=== PATIENT | male | born 1950 | race Caucasian/White ===

== ENCOUNTER 2019-07-07 12:48 | Outpatient (CLI) | payer OTHER, SELFPAY ==
--- NOTE | 2019-07-07 15:23 | DI.RAD_ITS ---
EXAM: XR ELBOW RT COMPLETE INDICATION: RT OLECRANON BURSITIS, M70.21. COMPARISON: No exams were available for comparison TECHNIQUE: 2D digital imaging was performed. FINDINGS: Three views were obtained. There is marked soft tissue swelling of the extensor region distal upper arm. There are multiple calcific or ossific bodies seen projected posterior to the distal humerus. Multiple calcific bodies also present adjacent to the olecranon. The findings as described are nonsp ecific but may represent dystrophic calcification versus tendon avulsion of the triceps. Please michel elate clinically and additional evaluation with MR may be considered for further evaluation. IMPRESSION:
== END 2019-07-07 13:08 ==
PROVIDERS: PCP Family Medicine; Visit Provider Family Medicine
DX: M70.21 Olecranon bursitis, right elbow (principal); M79.89 Other specified soft tissue disorders; M25.521 Pain in right elbow
CPT/HCPCS: 73080

== ENCOUNTER 2019-07-24 02:50 | Emergency (ER) | payer OTHER, SELFPAY ==
[2019-07-24] VITALS (27 sets, daily range): BP systolic 117–135; BP diastolic 67–96; PULSE 43–71; RESP 12–18; TEMP 36.8; O2SAT 94–98
--- NOTE | 2019-07-24 02:53 | W.ED.GENAD ---
Discharge Plan Disposition Patient Disposition: HOME Condition: Good Discharge Details Chief Complaint: GenMedical Clinical Impression: Left shoulder pain Primary Care Provider: Leesa Do V ED Provider: Stevan Avitia Home Meds and New Rx's Prescriptions: No Action simvastatin 10 mg Tablet 10 mg PO QPM RF: 0 Discharge Instructions Instructions: Chest Pain (ED), Shoulder Pain (ED) Additional Instructions: At this time your x-ray is normal, and your cardiac work-up is also normal. Your EKG shows no significant changes compared to prior EKGs. It is likely that your symptoms are secondary to a mild muscle strain, however it is important because of your risk factors that you follow-up closely with your primary care provider. Additionally we will schedule an outpatient stress test for you for further cardiac assessment. Please continue to take a daily aspirin. Consider taking Tylenol for your pain. If you notice any worsening of your symptoms, or any new symptoms such as vomiting, diarrhea, fever, chills, shortness of breath, chest pain, numbness, weakness, or fainting , please return immediately to the emergency department for reevaluation. Please follow up with your primary care provider as soon as possible for reassessment and reevaluation. As always, it was a pleasure participating in your medical care today. Your stress test has been scheduled for tomorrow, Wednesday. Please arrive at 1:45 PM. Referrals: Leesa Do MD [Primary Care Provider] - Medical Decision Making This is a very pleasant 69-year-old male with past medical history of high cholesterol, strong family history of atypical cardiac dysrhythmias, as well as family history of cardiac disease from his father. He presents today for evaluation of atypical left shoulder pain. Patient states that he woke at 1:30 AM, to urinate. While getting up to urinate he noticed some pain in his left shoulder and arm. He also had an atypical sensation in his chest. He came to the ER for further assessment. Vital signs normal, physical exam unremarkable. EKG shows nonspecific QRS widening, however previous EKG from 2005 demonstrates identical findings. Of note the patient has had notable episodes of exertion over the last few weeks including multiple long walks on the treadmill, exerting himself regularly at work with his job, and during these episodes he has had no pain, no discomfort, no shortness of breath, no decrease in energy. Signs and symptoms feel unlikely to be related to ACS especially with his notable lack of exertional symptoms. However because of his age, clinical risk factors, I do feel that cardiac evaluation, and serial troponins is certainly warranted. Signs and symptoms at this time are clinically inconsistent with PE or dissection. His symptoms may also be secondary to musculoskeletal etiology. We will give aspirin, acetaminophen, evaluate for ACS and reassess. 6:58 AM Serial troponins and EKGs have returned unremarkable. Patient's vital signs remained stable. Continued minimal achiness in the left shoulder. Notably improved from when he initially arrived. Signs and symptoms at this time appear clinically inconsistent with ACS, aortic dissection, or severe PE.. Suspect potential muscle strain. However because of the patient's family history, concerning risk factors we did discuss observation versus discharge with close follow-up and outpatient stress test. Family has agreed for outpatient management. We discussed the risks and benefits of this plan, and family understands and accepts this. At this time patient will be discharged home with close follow-up with PCP. We will set up outpatient stress testing, and we have discussed clear red flags for which to immediately return. I have extensively reviewed the treatment plan and discharge instructions with the patient and their family. I have addressed all patient concerns at this time. The patient and family was made aware of what symptoms to monitor for that would warrant a return to the emergency department. Discussed the plan with the patient and family, they demonstrate verbal understanding and agreement with our assessment and plan at this time. EKG 3: 05 Rate 51, MT 194, QTc 420, QRS 112, sinus bradycardia with nonspecific QRS widening. No significant ST elevations or depressions, no T wave inversions, no delta wave, no epsilon wave, no evidence of Brugada. No evidence of Wellens syndrome. Questionable small Q wave in lead III. Comparison of EKG from 03/16/2006 demonstrates no acute change. EKG 6: 23 Rate 49, MT 202, QTc 426, QRS 110, sinus bradycardia, nonspecific QRS widening, no significant ST elevation or depression, no evidence of STEMI. Unchanged from prior EKGs COMPARISON: No relevant prior studies available. FINDINGS: Lungs: Unremarkable. No consolidation. Pleural space: Unremarkable. No pleural effusion. No pneumothorax. Heart/Mediastinum: Unremarkable. No cardiomegaly. Diaphragm: Eventration of right hemidiaphragm. Bones/joints: Unremarkable. IMPRESSION: No acute findings. Thank you for allowing us to participate in the care of your patient. Dictated and Authenticated by: Jose Juan Camarena DO 07/24/2019 3:39 AM Eastern Time ([place] & [place]) HPI General Date/Time Provider Initiated Documentation: 07/24/19 02:52. HPI Narrative: This is a 69-year-old male with no significant past medical history who presents today for evaluation of left arm and shoulder pain. Patient states that when he awoke at 1:30 AM to urinate he noticed that he had some mild achiness in his left arm and left shoulder. In addition to this he noticed some weird feeling in his chest. He came to the ER for further evaluation. He denies any chest heaviness, tightness, shortness of breath, pleuritic chest pain, cough, tearing sensation in his chest, numbness, tingling, or weakness. 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 He denies any recent shortness of breath, fatigue, decreased stamina, or exertional chest pain. He also recently was on the treadmill and was walking greater than 1 mile with no difficulty, shortness of breath or chest or arm symptoms. He denies any previous cardiac disease. His 2 sisters did of sudden cardiac from an atypical heart condition, however the patient states that he has had a thorough work-up for this in the past and there was no concerning dysrhythmias during his prolonged cardiac monitoring then. His father did also of a heart attack. He denies any other complaints at this time. No other modifying factors. He did smoke over 35 years ago. He did take a baby aspirin earlier today. He does have high cholesterol. Denies PE risk factors such as recent long car rides, immobilization, recent surgery, prior history of DVT or PE, family history of PE or DVT, morbid obesity, exogenous estrogen and smoking, hemoptysis, history of cancer. Related Data Home Medications Medication Instructions Recorded Confirmed simvastatin 10 mg PO QPM 07/24/19 07/24/19 Allergies Allergy/AdvReac Type Severity Reaction Status Date / Time No Known Drug Allergies Allergy Unverified 11/21/18 11:07 Review of Systems Review of Systems ROS Unobtainable: All systems reviewed & are unremarkable except as noted in HPI and below [facility] Surgical History (Updated 11/22/18 @ 06:02 by Jacky Beltre MD) Status post right knee replacement (Chronic 2011) [place] [facility] [place] History Smoking/Tobacco Use Status: Former Tobacco Use Alcohol Intake: current Alcohol Intake frequency: a few times a month Substance use type: does not use Do you feel safe at home: Yes Do you feel safe in your relationship?: Yes Exam Narrative Exam Narrative: 1.Const: Well-nourished, Well-developed, appearing stated age 2.Eyes: PERRL, no conjunctival injection, and symmetrical lids. 3.ENT: Atraumatic external nose and ears. Moist MM. Neck: Symmetric, trachea midline, No thyromegaly. 4.CVS: +S1/S2, No murmurs or gallops. Peripheral pulses 2+ and equal in all extremities. Brisk capillary refill in all extremities. Radial pulses +2 bilaterally. Equal and symmetric. 5.RESP: Unlabored respiratory effort. Clear to auscultation bilaterally. No wheezes rales or rhonchi 6.GI: Soft, Nontender/Nondistended, No hepatosplenomegaly. No guarding or rebound. 7.MSK: Normocephalic/Atraumatic, Extremities w/o deformity or ttp No cyanosis or clubbing, Normal movement of all extremities. No pain with movement of the left upper arm. 8.Skin: Warm, Dry. No rashes or lesions. 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 Sensation grossly intact, no focal neurologic deficits. 10.Psych: (AAO) x3. Appropriate mood and affect
--- NOTE | 2019-07-24 03:01 | DI.RAD_ITS ---
EXAM: XR CHEST 2V PA LATERAL INDICATION: left shoulder pain. COMPARISON: No exams were available for comparison TECHNIQUE: 2D digital imaging was performed. FINDINGS: The lungs are free of infiltrate there is no pleural effusion or pneumothorax. The cardiovascular st ructures appear intact. Note is made of mild. No bony abnormality is seen. No acute apparent. Sign IMPRESSION:
--- NOTE | 2019-07-24 03:25 | NUR.NOTE ---
Pt arrives with c/o left arm pain since 129. Awoke to use BR, noted aching from shoulder to hand. Denies CP, SOB. Denies neck pain, no known injury. Family hx of CAD with sudden . SR on monitor. Labs drawn, to xray via strethcer.
[2019-07-24] MEDS: Acetaminophen 500 MG TAB 1000 MG PO (03:31)
[2019-07-24] MEDS: Aspirin 81 MG CHEW 324 MG CH (03:31)
--- NOTE | 2019-07-24 03:39 | DI.VRAD_ITS ---
PROCEDURE INFORMATION: Exam: XR Chest, 2 Views Exam date and time: 07/24/2019 3:26 AM Clinical history: 69 years old, male; Cough TECHNIQUE: Imaging protocol: XR of the chest Views: 2 views. COMPARISON: No relevant prior studies available. FINDINGS: Lungs: Unremarkable. No consolidation. Pleural space: Unremarkable. No pleural effusion. No pneumothorax. Heart/Mediastinum: Unremarkable. No cardiomegaly. Diaphragm: Eventration of right hemidiaphragm. Bones/joints: Unremarkable. IMPRESSION: No acute findings. Dictated and Authenticated by: Jose Juan Camarena MD. Ordering:LEYLA Calles MD
[2019-07-24 03:56] LABS: ALT 27 U/L (16-63); AST 25 U/L (15-37); Albumin 3.7 g/dL (3.4-5.0); Alkaline Phosphatase 50 U/L (46-116); Anion Gap 6.9 mmol/L (3-11); BUN 27 mg/dL (7-18); Bilirubin, Total 0.5 mg/dL (0.2-1.0); CO2 28.1 mmol/L (21.0-32.0); CREATININE 0.86 mg/dL (0.70-1.30); Calcium 8.7 mg/dL (8.5-10.1); Chloride 106 mmol/L (98-107); Glucose 100 mg/dL (70-100); Potassium 3.9 mmol/L (3.5-5.1); Sodium 141 mmol/L (136-145); Total Protein 6.9 g/dL (6.4-8.2)
[2019-07-24 04:04] LABS: Lipase 113 U/L (73-393); NT-proBNP 32 pg/mL
[2019-07-24 04:06] LABS: Troponin I < 0.05 ng/mL (0.00-0.06)
[2019-07-24 04:16] LABS: Abs Immature Grans 0.01 k/cumm (0.0-0.09); Absolute Basophil Count 0.03 k/cumm (0.0-0.2); Absolute Eosinophil Count 0.13 k/cumm (0.0-0.7); Absolute Lymphocyte Count 1.93 k/cumm (1.2-3.4); Absolute Neutrophil Count 2.09 k/cumm (1.2-6.7); Basophils % 0.6; Eosinophils % 2.8; HCT 41.4 % (40.0-50.0); HGB 14.1 g/dL (13.5-17.5); Immature Grans % 0.2; Lymphocytes % 41.2; Mean Corp. HGB Concentration 34.1 g/dL (32.0-36.0); Mean Corpuscular Hemoglobin 33.2 pg (27.0-33.0); Mean Corpuscular Volume 97.4 fL (80-95); Mean Platelet Volume 9.6 fL (8.0-11.0); Monocytes % 10.7; Neutrophils % 44.5; Platelet Count 190 x1000/uL (130-400); RBC 4.25 m/cumm (4.50-6.00); RBC Distribution Width 12.9 % (11.8-14.1); White Blood Cell Count 4.69 k/cumm (4.4-10.8)
[2019-07-24 04:35] LABS: PTT Activated 32.6 sec (21.0-31.4); Prothrombin Time 10.4 sec (9.3-11.0)
[2019-07-24 06:49] LABS: Troponin I < 0.05 ng/mL (0.00-0.06)
== END 2019-07-24 07:12 | disposition home or self-care (01) ==
PROVIDERS: Emergency Provider Student in an Organized Health Care Education/Training Program; PCP Family Medicine
DX: M25.512 Pain in left shoulder (principal); R07.89 Other chest pain; Z82.49 Family history of ischemic heart disease and other diseases of the circulatory system
CPT/HCPCS: 36415; 80053; 83690; 93005; 99284; 71046; 83880; 84484; 85025; 85610; 85730; 93010

== ENCOUNTER 2019-07-27 00:33 | Outpatient (CLI) | payer OTHER, SELFPAY ==
--- NOTE | 2019-07-27 14:00 | ETT_ITS ---
APPROVED REPORT Exam: Exercise Treadmill Patient Location: Out-Patient Stress Nurse: Chelle Harry RN Baseline Rhythm: Bradycardia BMI: 26.57 Indications: Left arm pain Medical History Medical History: Hyperlipidemia, Smoking(former) Cardiac Medications: Simvastatin/ Zocor, Aspirin Allergies: No known drug allergies Cardiac Risk Factors: Hyperlipidemia, FHX of CAD, Smoking(former) Pretest Chest Pain Characteristics: No chest pain Exercise History: Physically active Lung Sounds: Clear to auscultation Heart Sounds: Regular Stress Test Details Test: Exercise stress testing was performed using a Eliceo protocol. Rest Stress HR Resting HR: 52 bpm Max Heart Rate (APMHR): 152 bpm Resting HR Supine: 52 bpm Target HR (85% APMHR): 129 bpm Resting HR Standin bpm Max HR Achieved: 136 bpm % of APMHR: 89 Recovery HR: 76 bpm HR response to stress: Normal HR response to stress BP Resting BP: 164/64 mmHg Resting BP Supine: 164/64 mmHg Resting BP Standin/70 mmHg Max BP: 182/64 mmHg Recovery BP: 152/70 mmHg BP response to stress: Normal blood pressure response to stress. ECG Resting ECG: Sinus Bradycardia Ectopy: rare pvc Stress ECG: Sinus Tachycardia ST Change: Normal Arrhythmia: VPC's Recovery ECG: Sinus Rhythm Recovery Arrhythmia: VPC Clinical Time of Stop for Eliceo: 11:00 Reason for Termination: Fatigue, Target HR Achieved Exercise duration: 11 min00 sec Highest Stage Achieved: Stage 4: 4.2 mph at 16% grade. Exercise capacity: 13.44 METs Functional Capacity: Above average capacity Stress ECG Conclusion 1. The patient exercised for 11 minutes (13.44 METS) which demonstrates above average exercise tolera nce 2. This represents a maximal effort stress test 3. There is no ECG evidence of ischemia. 4. The Price Score (11) estimates an annual cardiovascular mortality of 0% and a five year survival of 96%. Using the Price Score there is a low probability of any angiographic coronary disease. Test Summary supine 52 164/64 standing 69 136/70 97 1 03:00 10 1.7 86 4.64 164/80 96 pvc noted 2 03:00 12 2.5 109 7.05 170/84 94 3 03:00 14 3.4 117 10.16 178/84 96 4 01:59 16 4.2 136 13.44 1 min recovery 107 182/64 3 min reocvery 72 164/70 6 min recovery 76 152/70
== END 2019-07-27 00:53 ==
PROVIDERS: PCP Family Medicine; Visit Provider Student in an Organized Health Care Education/Training Program
DX: E78.5 Hyperlipidemia, unspecified (principal); M79.602 Pain in left arm; Z87.891 Personal history of nicotine dependence; Z82.49 Family history of ischemic heart disease and other diseases of the circulatory system
CPT/HCPCS: 93017

== ENCOUNTER 2019-08-03 09:19 | Day surgery (SDC) | payer OTHER, SELFPAY ==
[2019-08-03 09:45] VITALS: BP 107/65; PULSE 50; RESP 16; TEMP 36.3; O2SAT 98
[2019-08-03] MEDS: Lactated Ringers 1,000 ML 100 ML IV (09:59)
[2019-08-03] MEDS: Bupivacaine LIPOSOME/PF 133 MG/10 ML VIAL IJ (11:11)
[2019-08-03] MEDS: Bupivacaine 0.5% Pres-Free 30 ML VIAL (11:11)
--- NOTE | 2019-08-03 11:23 | W.PM.DSUDISC ---
Discharge Plan Disposition Patient Disposition: HOME Condition: Stable Discharge Details Reason For Visit: (R) TRICEPS TENDON RUPTURE Attending Provider: Dharmesh Ramirez Primary Care Provider: Leesa Do V Home Meds and New Rx's Prescriptions: New naproxen 250 mg tablet 250 mg PO BID PRN (Reason: pain, moderate) Qty: 60 RF: 0 oxycodone 5 mg tablet 5 mg PO Q4H PRN (Reason: pain, severe) Qty: 22 RF: 0 Continued amoxicillin 500 mg Capsule 2,000 mg PO DIRECTED RF: 0 aspirin [Aspir-81] 81 mg Tablet,Delayed Release (Dr/Ec) 81 mg PO DAILY RF: 0 multivitamin Capsule 1 cap PO DAILY RF: 0 Lubricant Eye Drops 0.5 % Dropperette 1 drp OPHTHALMIC (EYE) BID RF: 0 omega 2-xvx-nlr-fish oil [Fish Oil] 1,000 mg (120 mg-180 mg) Capsule 1 cap PO DAILY RF: 0 simvastatin 10 mg Tablet 20 mg PO QPM RF: 0 Discharge Instructions Additional Instructions: Surgery: Right triceps tendon repair Activity: Nonweightbearing in splint at all times. Recommend elevation on 2 pillows for the next few days while resting to minimize swelling and discomfort. Prescriptions: Aspirin 81 mg take 1 daily to prevent a blood clot Naproxen 250 mg take 1-2 every 12 hours with a meal as needed for moderate pain Oxycodone 5 mg take 1-2 every 4-6 hours as needed for severe pain You may use [id number] Tylenol (acetaminophen) as needed for mild pain. These pain medications may be taken all at once or in different combinations as needed. Also, recommend Colace (docusate) as a stool softener as surgery and pain medicine cause constipation. Dressings: Leave splint and dressing in place until follow-up. Keep clean and dry at all times. Follow-up: 10-[address] Ramirez Please call the office during business hours with any questions or concerns. Let us know right away if you develop any redness, drainage, fevers, chest pain, or trouble breathing. Do not drink alcohol or drive for at least 24 hours after anesthesia. Stand Alone Forms: Anes.Nerve Block Instructions, DSU Post op Instructions, Maxine Iniguez (DSU) Referrals: Dharmesh Ramirez MD [ [facility] STAFF PHYSICIAN] - Discharge Orders Discharge Orders: Discharge Order (Routine); Ordered 08/03/19 Ordered By: Dharmesh Ramirez DS: Diagnosis Discharge Diagnosis (1) Rupture of right triceps tendon: Status: Acute
[2019-08-03] MEDS: ceFAZolin 2 GM/50 ML BAG IVPB (11:30)
[2019-08-03 14:11] VITALS: BP 96/58; PULSE 52; RESP 11; TEMP 36.3; O2SAT 99
[2019-08-03 14:15] VITALS: BP 85/55; PULSE 55; RESP 13; TEMP 36.3; O2SAT 99
[2019-08-03 14:20] VITALS: BP 93/68; PULSE 57; RESP 10; TEMP 36.3; O2SAT 99
[2019-08-03 14:35] VITALS: BP 101/58; PULSE 53; RESP 10; TEMP 36.4; O2SAT 97
--- NOTE | 2019-08-03 14:52 | W.PM.OP ---
Date of service: 08/03/19 Time of Service: 14:53 Operative Note Operative Note DATE OF PROCEDURE: 08/03/19 PRE-OP DIAGNOSIS: Right triceps tendon rupture POST-OP DIAGNOSIS: same PROCEDURE: Right triceps tendon repair SURGEON: Dharmesh Ramirez AUDIO NARRATOR: Ele Lancaster ANESTHESIA: GETA, regional and local ESTIMATED BLOOD LOSS: 15 COMPLICATIONS: None Patient was transported to: PACU Patient's condition: stable Implants: 1x 4.75 mm Arthrex swivel lock Indications: Please see complete medical record for details. Findings: 90% distal triceps avulsion from the olecranon with a few centimeters of retraction and scarring proximally. Intact 10% lateral head of the triceps. Procedure Description: The patient was taken to the operating room and transferred to the operating room table. General anesthesia was induced. The patient was positioned lateral with a beanbag for positioning. All bony prominences were well-padded. Preoperative antibiotics were administered. The right elbow and upper extremity was prepped and draped in the usual sterile fashion. The correct patient, procedure, and side of the procedure were all verified prior to incision. Using full-thickness flaps a posterior approach was taken to the olecranon and distal triceps tendon in a longitudinal fashion curving radially about the tip of the olecranon. Hemostasis was maintained. A large defect in the triceps tendon distally was encountered. Care was taken to free up the distal triceps tendon that was retracted and scarred while protecting neurovascular structures both medially and laterally. A Omar clamp was used to maintain traction on the triceps while digital blunt dissection was used to mobilize the tendon until it freely came down to its attachment on the olecranon and was not under undue tension when the elbow was positioned at 90 degrees of flexion. A rondure was used to debride the tendon edges of scar tissue and to debride the olecranon footprint of scar and soft tissue to create an appropriate bony bleeding bed to optimize healing. 2 bone tunnels were placed in a proximal to distal fashion using a 2 mm drill and taking care to start at the proximal most margin of the triceps footprint and exit the proximal ulna cortex medially and laterally a few centimeters distally. Next, the triceps tendon was secured using Arthrex suture tape in a locking Krak?w fashion using 2 sutures that were run from distal to proximal and back distal. Each suture pair exited the tendon footprint proximal margin. 2 fiber link sutures were then passed between each of the suture tape pairs keeping the loop proximal. Each set of 3 sutures both medially and laterally were brought through their respective bone tunnels using a OneMedNet suture retriever. One pair containing a suture tape from the medial and lateral repair stitch was then fed into the fiber link loop and brought through the tendon and back out the bone tunnel. This was repeated for the second side. This created a modified speed bridge reduction and compression repair. All sutures were provisionally tightened the elbow was taken to 90 degrees of flexion and there was found to be great apposition of the triceps tendon over its distal footprint without any gapping. The drill than the tap were used to place a 4.75 mm swivel lock proximally and centrally to the prior bone tunnels aiming distally and confirming that there was no anterior or joint cortical perforation using the OneMedNet suture passer to confirm a far cortex. Each pair of suture tapes was brought through the anchor eyelet and again individually tensioned medially and laterally. The suture anchor was secured. The suture anchor was brought flush to the cortex for maximal fixation and no soft tissue irritation. The elbow was again brought through a range of motion and the repair was found to be anatomic and secure. The free suture ends were cut. A 3-0 FiberWire was then used to repair this 90% of the triceps repair to the intact radial 10% of the lateral head of the triceps tendon in a running stitch fashion. The wound was copiously irrigated with normal saline. Deep tissue was closed using 0 Vicryl in a buried interrupted fashion. Superficial layers were irrigated again with normal saline. 0.25% bupivacaine with epinephrine was infiltrated about the incision. 2-0 Monocryl was used to close subcutaneous tissue in a buried interrupted fashion. 4-0 Monocryl was used to close the skin in a buried subcuticular fashion. Xeroform was placed over the incision followed by dry 4 x 4 gauze and ABDs and sterile soft roll. The arm was immobilized in a posterior plaster splint in approximately 60 degrees of elbow flexion. The patient awoke from anesthesia without complication was taken to recovery room in stable condition.
[2019-08-03 15:26] VITALS: BP 111/71; PULSE 55; RESP 16; TEMP 36.2; O2SAT 97
== END 2019-08-03 16:25 | disposition home or self-care (01) ==
PROVIDERS: PCP Family Medicine; Visit Provider Student in an Organized Health Care Education/Training Program
PROC: (CPT 24342; principal; 2019-08-03 10:45)
DX: S46.311A Strain of muscle, fascia and tendon of triceps, right arm, initial encounter (principal); X50.0XXA Overexertion from strenuous movement or load, initial encounter; G89.18 Other acute postprocedural pain
CPT/HCPCS: 24342; C1713; 76942; J0690; J1100; J1885; J2250; J2405; L3650

== ENCOUNTER 2019-10-30 10:50 | Outpatient (CLI) | payer OTHER, SELFPAY ==
--- NOTE | 2019-10-30 08:42 | DI.RAD_ITS ---
EXAM: XR STANDING ALIGNMENT INDICATION: L KNEE PAIN. COMPARISON: No exams were available for comparison TECHNIQUE: 2D digital imaging was performed. FINDINGS: There is a total right knee prosthesis. There are severe degenerative changes of the left knee, grea test in the medial femorotibial joint. There are mild degenerative changes of both hips, right great er than left. There is a slight leg length discrepancy. Ankle joint spaces are well maintained. IMPRESSION: Degenerative changes of the left knee. Right knee prosthesis. Minimal leg length discrepancy.
== END 2019-10-30 11:10 ==
PROVIDERS: PCP Family Medicine; Visit Provider Physician Assistant
DX: M25.562 Pain in left knee (principal); Z96.651 Presence of right artificial knee joint; M17.12 Unilateral primary osteoarthritis, left knee; M16.0 Bilateral primary osteoarthritis of hip; M21.70 Unequal limb length (acquired), unspecified site
CPT/HCPCS: 77073

== ENCOUNTER 2019-12-05 08:54 | Outpatient (CLI) | payer OTHER, SELFPAY ==
[2019-12-05 10:25] LABS: HCT 45.3 % (40.0-50.0); HGB 15.1 g/dL (13.5-17.5); Mean Corp. HGB Concentration 33.3 g/dL (32.0-36.0); Mean Corpuscular Hemoglobin 32.5 pg (27.0-33.0); Mean Corpuscular Volume 97.4 fL (80-95); Mean Platelet Volume 9.6 fL (8.0-11.0); Platelet Count 209 x1000/uL (130-400); RBC 4.65 m/cumm (4.50-6.00); RBC Distribution Width 12.8 % (11.8-14.1); White Blood Cell Count 5.53 k/cumm (4.4-10.8)
[2019-12-05 10:54] LABS: BUN 24 mg/dL (7-18); CREATININE 0.93 mg/dL (0.70-1.30); Calcium 9.1 mg/dL (8.5-10.1); Chloride 105 mmol/L (98-107); Glucose 103 mg/dL (74-106); Potassium 4.6 mmol/L (3.5-5.1); Sodium 142 mmol/L (136-145)
== END 2019-12-05 09:14 ==
PROVIDERS: PCP Family Medicine; Visit Provider Student in an Organized Health Care Education/Training Program
DX: M25.562 Pain in left knee (principal); M17.12 Unilateral primary osteoarthritis, left knee; Z01.818 Encounter for other preprocedural examination; Z01.812 Encounter for preprocedural laboratory examination
CPT/HCPCS: 36415; 80048; 85027

== ENCOUNTER 2019-12-12 13:10 | Observation (INO) | payer OTHER, SELFPAY ==
[2019-12-05 09:09] VITALS: BP 130/72; PULSE 52; RESP 18; TEMP 36.8; O2SAT 98
[2019-12-12] VITALS (13 sets, daily range): BP systolic 97–144; BP diastolic 54–84; PULSE 48–65; RESP 12–18; TEMP 35.7–36.7; O2SAT 92–98
[2019-12-12] MEDS: Lactated Ringers 1,000 ML 80 ML IV ×2 (10:45→16:46)
[2019-12-12] MEDS: Celecoxib 200 MG CAP 400 MG PO (10:58)
[2019-12-12] MEDS: Acetaminophen 500 MG TAB 1000 MG PO ×2 (10:58→19:24)
[2019-12-12] MEDS: Gabapentin 300 MG CAP PO ×2 (10:58→21:50)
[2019-12-12] MEDS: Bupivacaine 0.25% Pres-Free 30 ML VIAL ×2 (11:45→14:18)
[2019-12-12] MEDS: ceFAZolin 2 GM/50 ML BAG IVPB (13:10)
[2019-12-12] MEDS: Ketorolac 30 MG/ML VIAL (14:18)
[2019-12-12] MEDS: Normal Saline 20 ML VIAL (14:18)
--- NOTE | 2019-12-12 16:59 | IN_ITS ---
Date of service: 12/12/19 Time of Service: 16:59 PT Notes Visit Reasons: LEFT KNEE DJD Physical Therapy Inpatient Initial Evaluation Date: 12/12/2019 Referring Doctor: Jacky Beltre MD PT Orders: PT CONSULT: Status post Ortho surgery Precautions: Fall. Standard. WBAT on left LE. Hard of hearing. Patient Profile/Admitting Diagnosis: Patient is a 69-year-old male with primary unilateral osteoarthritis of left knee and status post left knee total arthroplasty on postoperative day 0. Patient is status post right TKA in 2010 with right triceps repair in July 2019. PMHX: Medical History (Updated 12/05/19 @ 08:07 by Ele Lancaster) Atopic dermatitis (Acute) Basal cell carcinoma (Acute) face GERD (gastroesophageal reflux disease) (Chronic) Heart murmur, systolic (Acute) History of concussion (Acute) History of syncope (Acute) Hyperlipemia (Acute) Surgical History (Updated 10/03/19 @ 13:27 by Ele Lancaster) History of appendectomy (Chronic) History of colonoscopy (Chronic) Rupture of right triceps tendon (Acute ~06/14/19) S/P triceps repair DOS: 08/03/19 Status post right knee replacement (Chronic 2010) [place] [facility] [place]/Home Situation: [place] lives with Dot in a private home with 4 steps to enter without rails that leads to a landing, another step up leads onto the main entrance of the house. Patient previously worked at [employer] and has lived an active lifestyle. says that patient will be staying on the main floor of the house to recover. Equipment Owned/DME: Front wheel walker. Subjective: Patient is agreeable to a PT consult. Patient states that he feels good and is rearing to go for walk. With weight bearing and ambulation patient did say that his leg feels like jelly and that there is still numb from the surgery. He denies headache, chest pain, and dizziness during all positional changes and throughout PT session. He is hoping that his Mazariegos catheter can be taken out as soon as permissible. Objective: General Observation: IV in right UE. Mazariegos catheter in place. TEDS on right leg. Mental Status: Alert and oriented x4 Pain: 0/10 ROM: Right Upper Extremity: Shoulder Flexion WFL. Shoulder abduction WFL. Elbow flexion WFL. Wrist flexion WFL. Opening and closing of hand WFL. Left Upper Extremity: Shoulder Flexion WFL. Shoulder abduction WFL. Elbow flexion WFL. Wrist flexion WFL. Opening and closing of hand WFL. Right Lower Extremity: Hip flexion WFL. Hip abduction WFL. Knee flexion WFL. Ankle dorsiflexion WFL. Ankle plantarflexion WFL. Left Lower Extremity: Hip flexion WFL. Hip abduction WFL. Knee flexion -5 to 120 degrees. Knee extension -5 degrees. Ankle dorsiflexion WFL. Ankle plantarflexion WFL. Strength: Right Upper Extremity: Shoulder flexors 5/5. Shoulder abductors 5/5. Elbow flexors 5/5. Elbow extensors 5/5. [employer] strong. Left Upper Extremity: Shoulder flexors 5/5. Shoulder abductors 5/5. Elbow flexors 5/5. Elbow extensors 5/5. [employer]ch[employer]ising Associate strong. Right Lower Extremity: Hip flexors 5/5. Hip abductors 5/5. Knee flexors 5/5. Knee extensors 5/5. Ankle dorsiflexors 5/5. Ankle plantarflexors 5/5. Left Lower Extremity:Hip flexors 4/5. Hip abductors 5/5. Knee flexors 3-/5. Knee extensors 3-/5. Ankle dorsiflexors 5/5. Ankle plantarflexors 5/5. Bed Mobility/Transfers: Rolling SBA Supine to sit SBA with HOB flat Sit to supine SBA with HOB flat Sit to stand CGA using both hands for support Stand to sit CGA using both hands for support Bed to chair minimal assist due to unsteadiness Chair to bed minimal assist due to unsteadiness Gait: Patient tolerated level surface ambulation of about 30 feet using the front wheeled walker with minimal assist of PT and wheelchair follow of nurse Renetta with reciprocal step to gait pattern. Left quads activation minimal during each left stance phase leading to instability and lack of full control from patient. Further ambulation activity was deferred by PT due to safety reasons despite patient wanting to go on some more. Patient was so sure that activity level will be significantly increased during the next session first thing tomorrow morning. Balance: Static Sitting: Normal Dynamic Sitting: Normal Static Standing: Fair Dynamic Standing: Fair Special Tests: Mobility Limitations Standardized Measure [facility] 6 clicks Basic Mobility Inpatient Short Form: Raw Score: 19 CMS Score: 42% deficit Informed Consent/Education: Patient instructed in purpose of PT consult and plan of care. Assessment: Decreased motor control of left quadriceps, difficulty with walking, impaired mobility ADL performance, and increased recent risk for falls resulting from recent surgery. Patient is a 69-year-old male with primary unilateral osteoarthritis of left knee and status post left knee total arthroplasty on postoperative day 0. Patient is status post right TKA in 2010 with right triceps repair in July 2019. Patient presents with clinical signs and symptoms consistent with current/admitting diagnoses that have resulted to mobility limitations, gait instability, generalized weakness, and impairment of motor control as demonstrated by the following impairment level findings: 1. Decreased strength to left knee major muscle groups 2. Impaired standing balance 3. Impaired activity tolerance 4. Limitation of joint range of motion in left knee Impairments are contributing to the following functional limitations: 1. Dependent bed mobility skills 2. Increased dependence with transfers 3. Inability to safely ambulate without assistive device and physical assistance 4. Increase completion time for mobility ADL performance 5. Increased fall risk 6. Inability to negotiate steps alone safely Patient is assessed as a 76488 moderate complexity based on the following: History: 69-year-old male with past medical history, impairment level findings, functional limitations, and [facility] deficits score of 42% Examination: Demonstrable impairment in strength, balance, and range of motion with underlying impairments and functional limitations as documented above Presentation:Evolving Decision Makin moderate complexity Goals: Goals X1 week 1. Supine-Sit independent 2. Sit-Supine independent 3. Sit-Stand independent 4. Stand-Sit independent 5. Bed-Chair independent 6. Chair-Bed independent 7. Independent gait on level surface with use of least restrictive device for at least 300 feet without report of pain nor dyspnea 8. Independent stair negotiation while holding onto bilateral rails for at least 5 steps without report of pain nor dyspnea 9. Independent with home exercise program 10. Good static and dynamic standing balance/tolerance Plan of Care/Treatment Plan: 1-2x/day, 7 days/week x 1 week. Plan of care has been reviewed with the ASSOCIATE SPA DIRECTOR providing the service under Physical Therapy direction. Initiate Physical Therapy intervention for strengthening, bed mobility, transfers, gait, stairs, balance training, use of assistive device. DISCHARGE RECOMMENDATIONS: May benefit from skilled physical therapy services according to orthopedic surgeon's timeline recommendations. Patient will be educated and trained on home exercise program per TKA exercise protocol in pre paration for outpatient physical therapy services. TREATMENT CODE/TIME: 31958 x 32 minutes beginning at 16:59 PM. Thank you very much for this referral. Apryl Gonzalez PT, DPT, CLT [facility] [place], [place]
[2019-12-12] MEDS: ceFAZolin 1 GM/50 ML BAG IVPB (17:39)
[2019-12-12] MEDS: Simvastatin 10 MG TAB PO (19:25)
[2019-12-12] MEDS: Aspirin E.C. 81 MG TABEC PO (19:25)
[2019-12-12] MEDS: Celecoxib 200 MG CAP PO (19:25)
[2019-12-12] MEDS: Refresh PLUS Eye Drops 0.4ml OP (19:26)
--- NOTE | 2019-12-12 21:25 | W.PM.OP ---
Date of service: 12/12/19 Time of Service: 15:26 Operative Note Operative Note DATE OF PROCEDURE: 12/12/19 PRE-OP DIAGNOSIS: Left Knee Osteoarthritis POST-OP DIAGNOSIS: same PROCEDURE: Left Cementless Total Knee Replacement SURGEON: Jacky Beltre MANUFACTURING ACCOUNTANT: Dayanna Mendez ANESTHESIA: regional and spinal ESTIMATED BLOOD LOSS: 400 PATHOLOGY: none sent TOURNIQUET TIME: 0 COMPLICATIONS: None Patient was transported to: PACU Patient's condition: stable Implants: 1. Depuy Attune Cruciate Retaining Pressfit Femoral Component, Size 5 2. Depuy Attune Rotating Platform Tibial Component, Size 5 3. Depuy Attune 5x6mm CR/RP Poly 4. Depuy Attune Patellar Component, Size 38mm Indications: I have seen Aaron in clinic for symptoms of left knee arthritis, confirmed with radiographic findings. Aaron has exhausted nonoperative methods and was having significant limitations in daily function and desired better function and less pain. I discussed the technical details of a knee replacement. I explained the risks of the procedure to include, but not limited to, bleeding, infection, pain, stiffness, fracture, damage to nerves and vessels, damage to muscles and tendons, loosening, need for repeat procedure, blood clot and cardiopulmonary demise. Despite these risks, he elected to proceed. Findings: There was significant signs of arthritis throughout the knee, most notably over the medial aspect. Procedure Description: Aaron was greeted in the preoperative holding area where the correct side was identified and marked. The consent was reviewed with the patient and signed. The history and physical was updated. All questions were answered. Preoperative mediacations were administered: Acetaminophen 1000mg, Celebrex 400mg, and Gabapentin 300mg. An adductor canal block was then administered by the anesthesia team in the PACU. Aaron was taken back to the operating room. A spinal anesthestic was then administered. The patient was placed into the supine position on the operating room table. A nonsterile tourniquet was placed high onto the leg but only used for cementing. Posts were placed for positioning during the procedure. All bony prominences were well padded. Prophylactic antibiotics in the form of Cefazolin were administered. 1g of Tranxemic Acid was given intravenously within 30 minutes of incision. The left leg was then prepped with Chloraprep and draped in a standard fashion with impervious stockinette and extremity drape. A second prep with Chloraprep was performed prior to placing Ioband. A timeout to confirm correct identity, side and site, procedure, allergies, anesthesia, and medical concerns was performed. With the knee in some flexion, a midline incision was made overlying the knee. Full thickness skin flaps were raised once the extensor mechanism was encountered. These were raised medially and laterally. Any bleeding was controlled with electrocautery. Once the extensor mechanism was fully exposed, a medial parapatellar arthrotomy was performed in a flexed position. All bleeding from the arthrotomy and the geniculate arteries was coagulated. A medial subperiosteal peel was performed with electrocautery to the midcoronal plane. The fat pad was removed while keeping the patellar tendon protected. The anterior distal femur synovium was removed for later visualization. The ACL and PCL were resected and the anterior horn of the lateral meniscus was transected. The knee was then flexed with the patella everted. Large osteophytes from the tibia were removed. Large osteophytes from the femur were removed. Using a step drill, and based on preoperative templating, the femoral canal was entered. This was done with a step drill without any difficulty. The intramedullary distal femoral cut guide was inserted, set to a 6 degree valgus cut and 9mm cut thickness. The distal femoral cut guide was then held in position and pinned. With the soft tissues protected, the distal cut was performed. This was passed over a few times to ensure a planar cut. I then turned attention to the tibia. The extramedullary guide was placed onto the leg. The distal aspect was slid medial to adjust for position of center of ankle and stay in line with shaft of the tibia. Approximately 3-5 degrees of posterior slope was kept in the proximal cutting guide. The center of the guide was aligned with the PCL. The stylus was used to assess cut thickness. The medial side, most involved side, was set for a 2mm cut, corresponding to 8mm laterally. This was then held in position and pinned into place with 2 additional pins and a cross pin for stability. The medial and lateral collateral ligaments were protected and the cut was performed. With this completed, it was assessed and noted to be of appropriate dimensions. The guide was removed. A spacer block was inserted and the knee was brought into extension. The 6mm spacer block provided full extension, without hyperextension and with stability of both the medial and lateral collateral ligaments was assessed. The pins from the femur and the tibia were then removed. The distal femur was then sized. The anterior stylus was placed onto the lateral ridge of the anterior femur. This indicated a size 5 femur. The external rotation of the guide was adjusted to 3 degrees to match the epicondylar axis, perpendicular to Anitra?s line. The 4-in-1 cutting guide was the placed. The posterior medial femur cut was evaluated and appeared of good thickness. The spacer block was inserted underneath the cutting guide and stability was confirmed in 90 degrees of flexion. An damari wing was used to confirm appropriate position of the anterior cut to avoid notching. This cutting guide was ensured to be flush on the cut surface and then pinned into place with headed pins. While protecting the soft tissues, quad tendon, and collateral ligaments, the anterior and posterior cuts were performed with a saw. The central two pins were removed and the posterior and anterior chamfers were cut next. The notch-cutting guide was placed. This was pinned to lateralize the femoral component as much as possible while keeping it flush on the cut surface. This was then pinned into position. A reciprocating saw was used to make the notch cut. A rasp smoothed the cut surfaces. A trial cruciate substituting femoral component was then inserted, impacted down to the cut surfaces, and the lug holes were drilled. A provisional trial tibial component was placed and the knee was brought through range of motion. There was noted to be excellent extension and flexion. There was no significant instability. The patella was tracking without thumbs. The tibial cut surface was fully exposed. The medial and lateral menisci were removed. The tibia was then sized as a 5. The tibia had been previously marked during trialing to correspond to the center of the tibial component to help with rotation. The trial was aligned to this tanmay, approximately rotated to the medial 1/3rd of the tibial tubercle. The trial was pinned into place. The tibia was prepared with a reamer and a keel punch. The knee was then brought into extension and the patella was measured as 29mm. Using the patellar clamp and cut guide, this was resected to a flat surface with at least 13mm of thickness remaining. The size 38mm patella fit the best. This was oriented and then clamped into position. The lugs were drilled. The trial components were removed. The final components, except for the polyethylene were opened on the back table. The periosteal and capsular tissues, especially posteriorly, around the knee were then systematically injected with a periarticular cocktail consisting of 50cc 0.25% Marcaine, 30mg Ketorolac, 20cc of Exparal and 50cc of injectable saline. The knee was thoroughly irrigated with a pulse lavage and dried. On the back table, with the implants opened, the cement was mixed for the patella. 1 batch of high viscosity cement were prepared with vacuum assistance. Cement was manually impacted into the cut surface of the patella and the patellar button was clamped into position and held. While the cement was hardening, the knee was irrigated with Irrisept chlorhexadine solution. It was allowed to sit in the knee for 3 minutes. The press-fit tibial component was then inserted. With light mallet blows, the tibia was impacted until I had complete contact against the tibial cut surface. The femoral component was likewise impacted with light mallet blows until it sat flush against the distal surface of the cut femur. After the cement had finally cured, approximately 15min, the clamp was removed from the patella and the knee was taken through range of motion. A size 6mm polyethylene component provided the best range of motion and stability with less than 2mm gapping with medial and lateral stress and full extension without significant hyperextension. The patella was tracking with a no-thumbs technique. The trial poly was removed and once again the knee was checked for any loose, excess, or errant cement. The poly component was then inserted and impacted into position after cleaning and drying the tibial tray. The capsule was then reapproximated with a No. 1 Vicryl at multiple locations. The capsule was finally closed with a No. 2 Stratafix, barbed suture. The second dosing of 1g TXA was started. Deep tissues were then reapproximated with 0 Vicryl and 2-0 Vicryl. The skin was closed with a running 3-0 Monocryl in a subcuticular fashion. This was reinforced with skin glue. A Mepilex silver dressing was applied along with a [id number] ITZEL wrap. A CryoCuff was applied. Aaron was transferred to the hospital bed without difficulty an suffering no apparent complication. Aaron has a good prognosis. Physical therapy will start today and without restrictions, weight-bearing as tolerated. Aspirin 81mg BID will be used for DVT prophylaxis.
[2019-12-13] MEDS: ceFAZolin 1 GM/50 ML BAG IVPB ×2 (01:18→09:23)
[2019-12-13 04:20] VITALS: BP 118/66; PULSE 56; RESP 19; TEMP 36.8; O2SAT 96
[2019-12-13] MEDS: Lactated Ringers 1,000 ML 80 ML IV (06:00)
--- NOTE | 2019-12-13 07:16 | W.PM.DS.N ---
Date of service: 12/13/19 Time of Service: 07:16 DS: Diagnosis Discharge Diagnosis (1) Primary osteoarthritis of left knee: Status: Chronic Discharge Plan Disposition Patient Disposition: HOME Condition: Good Discharge Details Reason For Visit: LEFT KNEE DJD Admit Date/Time: 12/12/19 13:10 Admit Provider: Jacky Beltre Attending Provider: Jacky Beltre Primary Care Provider: Leesa Do V Hospital Course Hospital Course: Patient was admitted to the medical/surgical floor following the procedure. It was tolerated well without any notable medical, surgical, or anesthetic complications. Mobilization began postoperatively. The del rosario catheter was removed and voiding spontaneously. Vitals were stable. Physical therapy worked with the patient and was cleared for discharge home. No acute medical issues. Home Meds and New Rx's Prescriptions: New celecoxib 200 mg capsule 200 mg PO BID PRN (Reason: pain) Qty: 60 RF: 1 aspirin 81 mg tablet,delayed release (DR/EC) 81 mg PO BID Qty: 60 RF: 0 acetaminophen 500 mg tablet 1,000 mg PO Q8H PRN (Reason: pain) Qty: 90 RF: 3 pantoprazole 40 mg tablet,delayed release (DR/EC) 40 mg PO DAILY Qty: 30 RF: 0 gabapentin 300 mg capsule 300 mg PO QHS Qty: 7 RF: 0 oxycodone 5 mg tablet 5 mg PO Q4H Qty: 12 RF: 0 Continued multivitamin Capsule 1 cap PO DAILY RF: 0 Lubricant Eye Drops 0.5 % Dropperette 1 drp OPHTHALMIC (EYE) BID RF: 0 omega 2-qub-awm-fish oil [Fish Oil] 1,000 mg (120 mg-180 mg) Capsule 1 cap PO DAILY RF: 0 simvastatin 10 mg Tablet 10 mg PO QPM RF: 0 Tumeric 500 mg 500 mg PO DAILY RF: 0 Discontinued amoxicillin 500 mg Capsule 2,000 mg PO DIRECTED RF: 0 aspirin [Aspir-81] 81 mg Tablet,Delayed Release (Dr/Ec) 81 mg PO DAILY RF: 0 naproxen 250 mg tablet 250 mg PO BID PRN (Reason: pain, moderate) Qty: 60 RF: 0 Discharge Instructions Additional Instructions: Dr. Beltre?s Total Knee Discharge Instructions Activity: The most important activity is to walk. You should try to take short walks a few times a day. It is important that when resting you work on keeping the knee straight. Avoid putting a pillow behind the knee as this will encourage flexion. Work on range of motion exercises as provided by Physical Therapy. - Start outpatient physical therapy within 2 weeks. - You should wear the MIGEL hose on both legs for 2 weeks. Dressing: Keep the surgical dressing in place for at least one week. After the first week it may be removed and replace with light gauze and tape or nothing. It may get wet after 3 days but avoid soaking the dressing. If it gets wet, just lightly pat dry. Medications: - You should take Tylenol and anti-inflammatory Celebrex as your primary pain control medications - You have been prescribed a stronger pain medication Oxycodone for breakthrough pain, take as needed as prescribed. - You have also been prescribed a stomach acid reduction agent Pantoprozole to help reduce stomach acid and reflux. - You have been prescribed Gabapentin to take at night for nerve pain and sleep - You will be taking Aspirin 81mg twice a day for DVT prevention unless instructed otherwise. - If you have constipation you should take Colace or Miralax (both [id number]). It takes most people 3-4 days to have a bowel movement. Follow-up: 2 weeks Referrals: Jacky Beltre MD [ [facility] STAFF PHYSICIAN] - Activity:: Activity as Tolerated Equipment/Supplies:: Walker Diet:: As Tolerated Discharge Orders Discharge Orders: Discharge Order (Routine); Ordered 12/13/19 Ordered By: Jacky Beltre DS: Summary Status at Discharge Functional status at discharge: uses cane/walker Overall status at discharge: patient is progressing back to baseline Mental Status: mental status grossly normal Speech and Movement: speech and movement normal Mood: congruent mood Affect: normal affect Exam Psych Mental Status: mental status grossly normal Speech and Movement: speech and movement normal Mood: congruent mood Affect: normal affect DS: Data Vitals/I&O Vitals and I&O: Vital Signs Temperature 36.8 C 12/13/19 04:20 Temperature Source Tympanic 12/13/19 04:20 Pulse 56 L 12/13/19 04:20 Pulse Rhythm Regular 12/13/19 03:55 Respiratory Rate 19 12/13/19 04:20 Respiratory Effort Non-Labored 12/13/19 03:55 Respiratory Depth Normal 12/13/19 03:55 Respiratory Pattern Normal 12/13/19 03:55 Blood Pressure 118/66 12/13/19 04:20 Pulse Oximetry 96 12/13/19 04:20 Respiratory End-tidal CO2 34 12/12/19 16:00 Oxygen Delivery Method Room Air 12/13/19 04:20 Oxygen Flow Rate 0 12/13/19 04:20 Pain Level 0 12/12/19 23:48 Intake & Output 12/12/19 12/12/19 12/13/19 11:59 23:59 11:59 Intake Total 1222.666 / 5333.365 0238 / 1000 Output Total 1150 / 1150 1000 / 1000 Balance 72.666 / 72.666 0 / 0 Weight 84.822 kg Intake: IV 1102.666 / 3903.730 2050 / 1000 Oral 120 / 120 Output: Urine 750 / 750 1000 / 1000 Estimated Blood Loss 400 / 400 Other: Urine Color Yellow Pale Yellow Urine Appearance Clear Clear Emesis Description [facility] Medical History Atopic dermatitis (Acute) Basal cell carcinoma (Acute) face GERD (gastroesophageal reflux disease) (Chronic) Heart murmur, systolic (Acute) History of concussion (Acute) Pt. stated he fell and hit his head on ice History of syncope (Acute) Hyperlipemia (Acute) Surgical History History of appendectomy (Chronic) History of colonoscopy (Chronic) Rupture of right triceps tendon (Acute ~06/14/19) S/P triceps repair DOS: 08/03/19 Status post right knee replacement (Chronic 2010) 2010 in [facility] [place] Social History Smoking/Tobacco Use Status: Former Tobacco Use Quit Date: 10/04/89 Pack-years: 30 Alcohol Intake: current Alcohol Intake frequency: a few times a week Drug use: Never Substance use type: does not use current occupation: retired - Current gender identity: male Do you feel safe at home: Yes Do you feel safe in your relationship?: Yes
[2019-12-13 07:40] VITALS: BP 115/72; PULSE 56; RESP 18; TEMP 36.7; O2SAT 95
[2019-12-13] MEDS: Omega-3 Fatty Acids 1000 MG CAP PO (09:21)
[2019-12-13] MEDS: Acetaminophen 500 MG TAB 1000 MG PO (09:21)
[2019-12-13] MEDS: Celecoxib 200 MG CAP PO (09:22)
[2019-12-13] MEDS: Aspirin E.C. 81 MG TABEC PO (09:22)
[2019-12-13] MEDS: Pantoprazole 40 MG TABCR PO (09:22)
[2019-12-13] MEDS: Refresh PLUS Eye Drops 0.4ml OP (09:22)
[2019-12-13] MEDS: Normal Saline Flush 10 ML SYR IV (09:23)
[2019-12-13] MEDS: oxyCODONE 5 MG TAB PO (09:29)
--- NOTE | 2019-12-13 10:30 | PTTR_ITS ---
Date of service: 12/13/19 Time of Service: 10:30 PT Notes Visit Reasons: LEFT KNEE DJD 12/13/2019 SUBJECTIVE: Pt stating he is doing well today with minimal discomfort. His is present during our treatment and together they are confident with managing stairs and getting around their home. OBJECTIVE: Seated in recliner. Agreeable to PT treatment. TRANSFERS Sit to stand: SBA Stand to sit: SBA GAIT Device: FWW Weight bearing: AT L Assist: SBA Distance: 100'x2 STAIRS: 3-4, 2-6, No rail at home and pt utilizes SPC and REGULATORY SUBMISSIONS SPECIALIST with step to pattern. THEREX: Review HEP, pillow placements and frequent bouts of walking. ASSESSMENT: Pt has good understanding of his HEP. No LOB during gait and he manages stairs well. He will have good support at home from his . PLAN: Pt to be discharged home. See discharge summary for details. Treatment time: 25 minutes [id number] Suellen Gonzales, MANAGER [employer]
[2019-12-13 11:43] VITALS: BP 152/76; PULSE 79; RESP 17; TEMP 36.8; O2SAT 97
--- NOTE | 2019-12-13 12:06 | PDOC.CMIN ---
- If Service Date Differs Date of service: 12/13/19 Time of Service: 12:06 Care Management Initial Assess REASON FOR HOSPITALIZATION:: Left total knee PAST MEDICAL HISTORY/PAST SURGICAL HISTORY:: Atopic dermatitis, basal cell carcinoma, GERD, heart murmur, concussion, syncope, hyperlipdemia. Surgical Hx: appendectomy, colonoscopy, tricept repair, total knee 2011 PREVIOUS FUNCTIONAL STATUS/SOCIAL/FAMILY SUPPORTS:: Aaron is independent at baseline he has family supports and does not feel he needs any addtional supports. CURRENT FUNCTIONAL STATUS:: Aaron is sitting up in the chair in his room, his family is present. He does wants to sign up for patient portal which CM will assist with. Aaron has has a knee replacement in the past and is clear about instruction. ADVANCE DIRECTIVES:: On file Has patient been provided with information about the portal?: Yes Did the patient sign up for the portal?: Yes CODE STATUS:: Full Code INSURANCE COVERAGE / FINANCIAL ISSUES:: Carlos Solano CURRENT HOME/COMMUNITY SERVICES/EQUIPMENT:: [facility] PRIMARY CARE PHYSICIAN:: POTENTIAL DISCHARGE NEEDS:: Follow up with provider as directed. PATIENT/FAMILY EDUCATION NEEDS:: Discharge educations, limitations and follow up plan of care. ANTICIPATED BARRIERS TO DISCHARGE:: None TRANSPORTATION:: Via private car with spouse PLAN:: Aaron is being discharged home today, he feels ready to discharge home. He states he has all his equipment and needs no additional services at this time. Patient signed up for portal at his request.
--- NOTE | 2019-12-14 09:08 | PT.INDS ---
Date of service: 12/14/19 PT Notes Visit Reasons: LEFT KNEE DJD Inpatient Physical Therapy Discharge Summary Dates: 12/14/2019 Dates of Service: 12/12/2019 and 12/13/2019 This is a clinical summary of care provided on the duration of dates listed above. No charge was made in the completion of this documentation. Referring Doctor: Jacky Beltre MD PT Orders: PT CONSULT: Status post Ortho surgery Precautions: Fall. Standard. WBAT on left LE. Hard of hearing. Patient Profile/Admitting Diagnosis: Patient is a 69-year-old male with primary unilateral osteoarthritis of left knee and status post left knee total arthroplasty on postoperative day 1 on day of discharge. Patient is status post right TKA in 2010 with right triceps repair in July 2019. PMHX: Medical History (Updated 12/05/19 @ 08:07 by Ele Lancaster) Atopic dermatitis (Acute) Basal cell carcinoma (Acute) face GERD (gastroesophageal reflux disease) (Chronic) Heart murmur, systolic (Acute) History of concussion (Acute) History of syncope (Acute) Hyperlipemia (Acute) Surgical History (Updated 10/03/19 @ 13:27 by Ele Lancaster) History of appendectomy (Chronic) History of colonoscopy (Chronic) Rupture of right triceps tendon (Acute ~06/14/19) S/P triceps repair DOS: 08/03/19 Status post right knee replacement (Chronic 2010) 2010 in [facility] Social History/Home Situation: [place] lives with Dot in a private home with 4 steps to enter without rails that leads to a landing, another step up leads onto the main entrance of the house. Patient previously worked at [employer] and has lived an active lifestyle. says that patient will be staying on the main floor of the house to recover. Equipment Owned/DME: Front wheel walker. Subjective: NT. See most recent NUT DEHYDRATOR OPERATOR notes. Objective: General Observation: NT. See most recent NUT DEHYDRATOR OPERATOR notes. Mental Status: NT. See most recent NUT DEHYDRATOR OPERATOR notes. Pain: NT. See most recent NUT DEHYDRATOR OPERATOR notes. ROM: Right Upper Extremity: Shoulder Flexion WFL. Shoulder abduction WFL. Elbow flexion WFL. Wrist flexion WFL. Opening and closing of hand WFL. Left Upper Extremity: Shoulder Flexion WFL. Shoulder abduction WFL. Elbow flexion WFL. Wrist flexion WFL. Opening and closing of hand WFL. Right Lower Extremity: Hip flexion WFL. Hip abduction WFL. Knee flexion WFL. Ankle dorsiflexion WFL. Ankle plantarflexion WFL. Left Lower Extremity: Hip flexion WFL. Hip abduction WFL. Knee flexion -5 to 120 degrees. Knee extension -5 degrees. Ankle dorsiflexion WFL. Ankle plantarflexion WFL. Strength: Right Upper Extremity: Shoulder flexors 5/5. Shoulder abductors 5/5. Elbow flexors 5/5. Elbow extensors 5/5. Clinical Evaluator strong. Left Upper Extremity: Shoulder flexors 5/5. Shoulder abductors 5/5. Elbow flexors 5/5. Elbow extensors 5/5. Clinical Evaluator strong. Right Lower Extremity: Hip flexors 5/5. Hip abductors 5/5. Knee flexors 5/5. Knee extensors 5/5. Ankle dorsiflexors 5/5. Ankle plantarflexors 5/5. Left Lower Extremity:Hip flexors 4/5. Hip abductors 5/5. Knee flexors 3-/5. Knee extensors 3-/5. Ankle dorsiflexors 5/5. Ankle plantarflexors 5/5. Bed Mobility/Transfers: Rolling SBA Supine to sit SBA with HOB flat Sit to supine SBA with HOB flat Sit to stand SBA Stand to sit SBA Bed to chair SBA Chair to bed SBA Gait: 100 feet x 2 with SBA using front wheeled walker with WBAT on left. Up-and-down three 4 inch steps and two 6 inch steps with single-point cane with only hand-held assist. Balance: Static Sitting: Normal Dynamic Sitting: Normal Static Standing: Fair Dynamic Standing: Fair Assessment: Decreased motor control of left quadriceps, difficulty with walking, impaired mobility ADL performance, and increased recent risk for falls resulting from recent surgery. Patient is a 69-year-old male with primary unilateral osteoarthritis of left knee and status post left knee total arthroplasty on postoperative day 1 on day of discharge. Patient is status post right TKA in 2010 with right triceps repair in July 2019. Patient presented with clinical signs and symptoms consistent with current/admitting diagnoses that have resulted to mobility limitations, gait instability, generalized weakness, and impairment of motor control as demonstrated by the following impairment level findings: 1. Decreased strength to left knee major muscle groups 2. Impaired standing balance 3. Impaired activity tolerance 4. Limitation of joint range of motion in left knee Impairments contributed to the following functional limitations: 1. Dependent bed mobility skills 2. Increased dependence with transfers 3. Inability to safely ambulate without assistive device and physical assistance 4. Increase completion time for mobility ADL performance 5. Increased fall risk 6. Inability to negotiate steps alone safely Goals: Goals X1 week 1. Supine-Sit independent NOT MET 2. Sit-Supine independent NOT MET 3. Sit-Stand independent NOT MET 4. Stand-Sit independent NOT MET 5. Bed-Chair independent NOT MET 6. Chair-Bed independent NOT MET 7. Independent gait on level surface with use of least restrictive device for at least 300 feet without report of pain nor dyspnea NOT MET 8. Independent stair negotiation while holding onto bilateral rails for at least 5 steps without report of pain nor dyspnea NOT MET 9. Independent with home exercise program NOT MET 10. Good static and dynamic standing balance/tolerance NOT MET DISCHARGE RECOMMENDATIONS: May benefit from skilled physical therapy services according to orthopedic surgeon's timeline recommendations. Patient will be educated and trained on home exercise program per TKA exercise protocol in preparation for outpatient physical therapy services. TREATMENT CODE/TIME: NV Thank you very much for this referral. Apryl Gonzalez PT, DPT, CLT [facility] [place], [place]
== END 2019-12-13 13:13 | disposition home or self-care (01) ==
LOC: PDS 16:20 → MS 16:23 → DSU 16:38 → MS 16:42 → PDS 16:42
PROVIDERS: Admitting Provider Student in an Organized Health Care Education/Training Program; PCP Family Medicine; Visit Provider Student in an Organized Health Care Education/Training Program
PROC: 0SRD0JA Replacement of Left Knee Joint with Synthetic Substitute, Uncemented, Open Approach (ICD-10-PCS; CPT 27447; principal; 2019-12-12 15:30)
DX: M17.12 Unilateral primary osteoarthritis, left knee (principal); M25.562 Pain in left knee; Z96.652 Presence of left artificial knee joint; K21.9 Gastro-esophageal reflux disease without esophagitis; E78.5 Hyperlipidemia, unspecified
CPT/HCPCS: 27447; C1776; 76942; 97110; 97162; 97530; NC; G0378; J0690; J1885; J2001; J2405

== ENCOUNTER 2019-12-28 11:35 | Outpatient (CLI) | payer OTHER, SELFPAY ==
--- NOTE | 2019-12-28 11:00 | DI.RAD_ITS ---
EXAM: XR STANDING ALIGNMENT AND XR KNEE LT 1 VIEW CLINICAL HISTORY: 1ST POST OP. TECHNIQUE: 2D digital imaging was performed. COMPARISON: XR STANDING ALIGNMENT from 10/30/2019 FINDINGS: The patient has bilateral total knee replacements. Since the prior examination, the patient has unde rgone a left total knee replacement. The orthopedic hardware appears in good position. The bones ar e intact. There is mild soft tissue swelling about the left knee. The right lower extremity measure s 89.9 cm. The left lower extremity measures 89.8 cm. IMPRESSION: Bilateral total knee replacements. DATA REPOSITORY: RADIATION DOSE DELIVERED:
== END 2019-12-28 11:55 ==
PROVIDERS: PCP Family Medicine; Visit Provider Student in an Organized Health Care Education/Training Program
DX: Z96.653 Presence of artificial knee joint, bilateral (principal); Z47.1 Aftercare following joint replacement surgery; M79.89 Other specified soft tissue disorders
CPT/HCPCS: 73560; 77073

== ENCOUNTER 2020-03-08 06:06 | Day surgery (SDC) | payer OTHER, SELFPAY ==
[2020-03-08 06:19] VITALS: BP 125/80; PULSE 63; RESP 16; TEMP 36.7; O2SAT 96
[2020-03-08] MEDS: Lactated Ringers 1,000 ML 80 ML IV (06:42)
--- NOTE | 2020-03-08 07:18 | W.PM.DSUDISC ---
Discharge Plan Disposition Patient Disposition: HOME Condition: Good Discharge Details Reason For Visit: Colonoscopy Attending Provider: Danni Oh Primary Care Provider: Leesa Do V Home Meds and New Rx's Prescriptions: Continued aspirin [Adult Low Dose Aspirin] 81 mg tablet,delayed release (DR/EC) 81 mg PO DAILY RF: 0 zyflammed whole body capsule 1 cap PO DAILY RF: 0 multivitamin Capsule 1 cap PO DAILY RF: 0 Lubricant Eye Drops 0.5 % Dropperette 1 drp OPHTHALMIC (EYE) BID RF: 0 omega 1-qmm-xdn-fish oil [Fish Oil] 1,000 mg (120 mg-180 mg) Capsule 1 cap PO DAILY RF: 0 simvastatin 10 mg Tablet 10 mg PO QPM RF: 0 acetaminophen 500 mg tablet 1,000 mg PO Q8H PRN (Reason: pain) Qty: 90 RF: 3 Discontinued polyethylene glycol 3350 17 gram/dose powder 238 g PO ONCE Qty: 238 RF: 0 bisacodyl 5 mg tablet,delayed release (DR/EC) 5 mg PO ONCE Qty: 4 RF: 0 Discharge Instructions Additional Instructions: Findings: Your colonoscopy showed diverticulosis. No polyps were found. Follow up: Plan for a colonoscopy in 5 years due to family history of colon cancer. Please call if you develop: fevers >101.5 Nausea or Vomiting Abdominal pain that is not transient DAY SURGERY UNIT POST COLONOSCOPY INSTRUCTIONS 1. Because there will be medication in your system for the next 24 hours, you may feel a little sleepy. Your coordination will be affected. Therefore: a. Do not drive or operate dangerous equipment for 24 hours. b. Do not drink alcohol beverages for 24 hours (not even beer). c. Plan to go home and rest for the day. 2. Generally there are no restrictions on your activity after a day or so has gone by, but you may feel a bit fatigued for a few days. 3 After you arrive home you may have a light meal and return to a normal diet as you can tolerate it without feeling sick to your stomach. 4. After surgery, you may feel pain or discomfort. This should be only transient, but if it persists please contact your doctor. 5. If there are any questions regarding the findings of your procedure, please feel free to contact your doctor. 6. If you are unable to contact your doctor with a problem, contact the hospital at [phone]. 7. Continue all your regular medications unless directed otherwise. I understand the above instructions and have no questions. Signature of Patient or Responsible Adult Escort Date/Time Name of Responsible Adult Escort Signature of Nurse Date/Time Activity:: Activity as Tolerated Diet:: As Tolerated Discharge Orders Discharge Orders: Discharge Order (Routine); Ordered 03/08/20 Ordered By: Danni Oh DS: Diagnosis Discharge Diagnosis (1) Family history of colon cancer in father: Status: Acute (2) Diverticulosis: Status: Acute
--- NOTE | 2020-03-08 07:19 | W.PM.OP ---
Date of service: 03/08/20 Time of Service: 08:08 Operative Note Operative Note DATE OF PROCEDURE: 03/08/20 PRE-OP DIAGNOSIS: History of colon polyps POST-OP DIAGNOSIS: other (Diverticulosis) PROCEDURE: Colonoscopy SURGEON: Danni Oh ANESTHESIA: MAC Patient was transported to: same day Patient's condition: stable Indications: This patient had a transverse colon polyp removed in 2014. His father was treated for colon cancer. Procedure Description: The patient was placed in the left Salguero position. Propofol was titrated to sedation. Digital rectal examination revealed no abnormalities. The scope was advanced to the cecum without difficulty. The ileocecal valve and appendiceal orifice were clearly identified. The distal ileum was intubated and appeared normal. The prep was good. The scope was slowly withdrawn over the course of greater than 6 minutes with no abnormalities seen in the ascending, transverse, descending, sigmoid colon or rectum including on retroflexed view with the exception of significant diverticulosis in the sigmoid region and scattered throughout the colon. The patient tolerated the procedure well and was stable to recovery. Plan for routine screening colonoscopy in 5 years or sooner if symptoms indicate.
[2020-03-08 08:31] VITALS: BP 115/67; PULSE 63; RESP 18; TEMP 36.4; O2SAT 97
== END 2020-03-08 08:55 | disposition home or self-care (01) ==
PROVIDERS: PCP Family Medicine; Visit Provider Surgery
PROC: 0DJD8ZZ Inspection of Lower Intestinal Tract, Via Natural or Artificial Opening Endoscopic (ICD-10-PCS; CPT 45378; principal; 2020-03-08 07:30)
DX: Z12.11 Encounter for screening for malignant neoplasm of colon (principal); Z80.0 Family history of malignant neoplasm of digestive organs; Z86.010 Personal history of colon polyps; K57.30 Diverticulosis of large intestine without perforation or abscess without bleeding
CPT/HCPCS: 45378

== ENCOUNTER 2020-03-30 14:10 | Emergency (ER) | payer OTHER, SELFPAY ==
[2020-03-30 14:13] VITALS: BP 158/86; PULSE 70; RESP 18; TEMP 36.6; O2SAT 96
--- NOTE | 2020-03-30 14:15 | DI.CT_ITS ---
EXAM: CT HEAD WO CLINICAL HISTORY: R/O fracture, Foreign body, injury, lac r frontal. TECHNIQUE: Imaging Protocol: Axial computed tomography images with coronal and sagittal reformatted images were created and reviewed COMPARISON: No exams were available for comparison FINDINGS: Ventricles and Extra axial spaces: Normal in size and morphology for the patient's age. Hemorrhage: None. Cerebral parenchyma: Normal. Midline shift: None. Brainstem/Cerebellum: Normal. Calvarium: Normal. Visualized Paranasal sinuses/Mastoids: Small mucous retention cyst or polyp in the right maxillary si nus. Soft Tissues: Small soft tissue laceration overlying the right frontal bone. No radiopaque foreign b lazaro. IMPRESSION: 1. No acute intracranial process. 2. Small soft tissue laceration overlying the right frontal bone. No radiopaque foreign body. RADIATION DOSE DELIVERED: 808.01mGy.cm Total DLP DATA REPOSITORY: All CT scans at this facility are submitted to the National Radiology Data Registry (NRDR) Dose Index Registry (DIR) with the [employer] (ACR). RADIATION OPTIMIZATION: All CT scans at this facility use at least one of these dose optimization te chniques: automated exposure control; mA and/or kV adjustment per patient size (includes targeted exa ms where dose is matched to clinical indication); or iterative reconstruction.
--- NOTE | 2020-03-30 14:31 | ED.GENADUL_ITS ---
Discharge Plan Disposition Patient Disposition: HOME Condition: Stable Discharge Details Chief Complaint: Laceration Clinical Impression: Concussion, Laceration of scalp Primary Care Provider: Leesa Do V ED Provider: Marli Oconnor Home Meds and New Rx's Prescriptions: Continued aspirin [Adult Low Dose Aspirin] 81 mg tablet,delayed release (DR/EC) 81 mg PO DAILY RF: 0 zyflammed whole body capsule 1 cap PO DAILY RF: 0 multivitamin Capsule 1 cap PO DAILY RF: 0 Lubricant Eye Drops 0.5 % Dropperette 1 drp OPHTHALMIC (EYE) BID RF: 0 omega 3-nla-cmv-fish oil [Fish Oil] 1,000 mg (120 mg-180 mg) Capsule 1 cap PO DAILY RF: 0 simvastatin 10 mg Tablet 10 mg PO QPM RF: 0 acetaminophen 500 mg tablet 1,000 mg PO Q8H PRN (Reason: pain) Qty: 90 RF: 3 Discharge Instructions Instructions: Laceration (ED), Concussion (ED) Additional Instructions: Have sutures removed in 5 to 7 days. He can come back here or follow-up with your primary care provider. If any signs of infection like increased redness, swelling, drainage or any concerns please return sooner to the emergency room. You have any worsening headache, confusion, vomiting please return immediately to the emergency room. Keep covered for 12 to 24 hours then allow laceration to air dry at least 1 to 2 hours a day. Keep covered and clean if outside or working. Referrals: Leesa Do MD [Primary Care Provider] - Medical Decision Making 70-year-old male presents the ED complaining of head injury. Patient reports he was cutting down a metal swing set cut a metal pole and the other end came up and hit him in the head. Denies loss of consciousness, no neck or back pain. Takes daily aspirin. He does have a linear laceration noted to his right frontal scalp measuring approximately 3 and half centimeters. Small venous bleed noted upon initial exam. EOMs are intact, does have a mild right frontal maxillary sinus tenderness with palpation, no crepitus or step-off. No other complaints at this time. 1439: Laceration infiltrated with 1% lidocaine with epi patient tolerated well, anesthesia achieved. Bleeding controlled. Head CT without contrast ordered to rule out foreign body versus intracranial hemorrhage versus fracture. COMPARISON: No relevant prior studies available. FINDINGS: No evidence of hemorrhage. No mass effect. No acute intracranial abnormality. No radiopaque foreign body. Slight irregularity to the nasal bones suggesting nondisplaced fracture. Minimal retention cyst in the right maxillary sinus. IMPRESSION: No evidence of acute intracranial process. Thank you for allowing us to participate in the care of your patient. Dictated and Authenticated by: Noé Kerr MD Laceration repaired as noted in procedure note above. Patient alert and oriented x4 upon discharge ambulatory in department without difficulty. Given strict return instructions and home care. Instructed to follow-up with PCP or return to the ED to have sutures removed in 5 to 7 days. 3 simple interrupted four-point 0 nylon sutures placed. This text was generated using [employer] system, please disregard any oddities of phrase or misspellings. HPI General Mode of arrival: ambulatory . Date/Time Provider Initiated Documentation: 03/30/20 14:14 . Limitations to Documentation: no limitations and physical limitation (Hard of hearing) . Information obtained by: patient . HPI Narrative: 70-year-old male presents the ED complaining of head injury. Patient reports he was cutting down a metal swing set cut a metal pole and the other end came up and hit him in the head. Denies loss of consciousness, no neck or back pain. Takes daily aspirin. He does have a linear laceration noted to his right frontal scalp measuring approximately 3 and half centimeters. Small venous bleed noted upon initial exam. EOMs are intact, does have a mild right frontal maxillary sinus tenderness with palpation, no crepitus or step-off. No other complaints at this time. Related Data Home Medications Medication Instructions Recorded Confirmed simvastatin 10 mg PO QPM 07/24/19 03/30/20 Lubricant Eye Drops 1 drp OPHTHALMIC (EYE) BID 08/01/19 03/30/20 multivitamin 1 cap PO DAILY 08/01/19 03/30/20 omega 0-csh-dow-fish oil [Fish Oil] 1 cap PO DAILY 08/01/19 03/30/20 acetaminophen 1,000 mg PO Q8H PRN #90 tab 12/13/19 03/30/20 aspirin 81 mg tablet,delayed 81 mg PO DAILY 02/29/20 03/30/20 release zyflammed whole body 1 cap PO DAILY 02/29/20 03/08/20 Previous Rx's Medication Instructions Recorded acetaminophen 1,000 mg PO Q8H PRN #90 tab 12/13/19 Allergies Allergy/AdvReac Type Severity Reaction Status Date / Time No Known Drug Allergies Allergy Verified 03/30/20 14:16 General Stated Complaint: Laceration MIKIE: 4 Review of Systems All systems reviewed & are unremarkable except as noted in HPI and below Constitutional Constitutional: Reports as per HPI ENT Ears, Nose, Mouth, and Throat: Reports sinus pain Comments: no complaints of ear pain. No ear trauma. Cardiovascular Cardiovascular: Denies chest pain and Denies dyspnea Respiratory Respiratory: Denies cough and Denies dyspnea Integumentary/Breasts Skin/Breast: Reports as per HPI Comments: Laceration right frontal scalp FOR[facility]LY [facility], [facility] Medical History Adenomatous polyp of transverse colon (Acute ~04/18/15) Atopic dermatitis (Acute) Basal cell carcinoma (Acute) face Family history of colon cancer in father (Acute) At age 65 GERD (gastroesophageal reflux disease) (Chronic) Heart murmur, systolic (Acute) History of concussion (Acute) Pt. stated he fell and hit his head on ice History of syncope (Acute) Hyperlipemia (Acute) Surgical History History of appendectomy (Chronic) History of colonoscopy (Chronic) Rupture of right triceps tendon (Acute ~06/14/19) S/P triceps repair DOS: 08/03/19 Status post right knee replacement (Chronic 2010) 2010 in [facility] Status post total left knee replacement (Acute 12/12/19) Social History Smoking/Tobacco Use Status: Former Tobacco Use Quit Date: 10/04/90 Pack-years: 30 Alcohol Intake: current Alcohol Intake frequency: a few times a week Alcohol type: beer and hard liquor Drug use: Never Substance use type: does not use current occupation: retired - Current gender identity: male Do you feel safe at home: Yes Do you feel safe in your relationship?: Yes Exam Narrative Exam Narrative: Constitutional: Alert and oriented x3. Appears stated age. Normal body habitus. Head: Normocephalic, no palpable skull fracture, no hematoma palpated. Eyes: Pupils PERRLA, Red reflex noted, EOM's intact. Eyelids symmetrical without lesions, discharge, or swelling. ENT: Bilateral TM's WNL, no hemotympanum, external ear normal to inspection, no mastoid TTP, swelling, or erythema, Nasal turbinates WNL, no septal hematoma, no nasal discharge. Normal dentition, does have prosthetic dentures uppers, posterior pharynx WNL, no exudate. Chest: RRR, Normal S1, S2, distal pulses intact. Resp: Lungs clear to auscultation bilaterally, no wheezes, rales, or rhonchi. Musculoskeletal: Normal gait, 5/5 strength to all four extremities. Skin: Approximately 3.5 cm linear laceration noted to his right frontal scalp small venous ooze noted. Capillary refill less than 2 sec. Neurologic: Cranial nerves II-XII intact. Alert and oriented x 3. DTR's intact. Hematologic/Lymphatic: No ecchymosis, no lymphadenopathy. Course Vital Signs Vital signs: Vital Signs Temperature 36.6 C 03/30/20 14:13 Pulse 70 03/30/20 14:13 Respiratory Rate 18 03/30/20 14:13 Blood Pressure 158/86 H 03/30/20 14:13 Pulse Oximetry 96 03/30/20 14:13 Temperature 36.6 C 03/30/20 14:13 Temperature Source Tympanic 03/30/20 14:13 Pulse 70 03/30/20 14:13 Respiratory Rate 18 03/30/20 14:13 Respiratory Effort Non-Labored 03/30/20 14:16 Blood Pressure 158/86 H 03/30/20 14:13 Pulse Oximetry 96 03/30/20 14:13 Oxygen Delivery Method Room Air 03/30/20 14:13 Oxygen Flow Rate 0 03/30/20 14:13 Pain Level 4 03/30/20 14:13 Procedures Laceration Laceration 1: Site: scalp Side (If applicable): right Size (cm): 3.5 Description: linear Depth: simple, single layer Local Anesthetic: Lidocaine 1% and with Epi Amount of anesthesia used (mL): 2 Pre-repair: wound explored, irrigated extensively and deep structures intact Skin layer closed with: nylon Size (cm): 4-0 Number of sutures: 3 Technique: simple, interrupted
[2020-03-30] MEDS: Tetanus & Diphtheria Tox,ADULT 0.5 ML VIAL IM (14:40)
--- NOTE | 2020-03-30 15:04 | DI.VRAD_ITS ---
PROCEDURE INFORMATION: Exam: CT Head Without Contrast Exam date and time: 03/30/2020 2:22 PM Age: 70 years old Clinical indication: Other: R/O fracture, foreign body, injury, lac R frontal TECHNIQUE: Imaging protocol: Computed tomography of the head without contrast. Radiation optimization: All CT scans at this facility use at least one of these dose optimization techniques: automated exposure control; mA and/or kV adjustment per patient size (includes targeted exams where dose is matched to clinical indication); or iterative reconstruction. COMPARISON: No relevant prior studies available. FINDINGS: No evidence of hemorrhage. No mass effect. No acute intracranial abnormality. No radiopaque foreign body. Slight irregularity to the nasal bones suggesting nondisplaced fracture. Minimal retention cyst in the right maxillary sinus. IMPRESSION: No evidence of acute intracranial process. Dictated and Authenticated by: Noé Kerr MD. Ordering:BENEDICT Calles MD
== END 2020-03-30 18:50 | disposition home or self-care (01) ==
PROVIDERS: Emergency Provider Registered Nurse Emergency; PCP Family Medicine
DX: S01.01XA Laceration without foreign body of scalp, initial encounter (principal); W22.8XXA Striking against or struck by other objects, initial encounter; Z79.82 Long term (current) use of aspirin
CPT/HCPCS: 12002; 90471; 99284; 70450; 99282

== ENCOUNTER 2020-12-20 11:34 | Outpatient (CLI) | payer OTHER, SELFPAY ==
--- NOTE | 2020-12-20 10:15 | DI.RAD_ITS ---
EXAM: XR KNEE LT 2V AP,LAT INDICATION: annual f/u. COMPARISON: CR XR KNEE LT 1V from 12/28/2019 TECHNIQUE: 2D digital imaging was performed. FINDINGS: There has been no change in the total knee prosthesis or appearance of the surrounding bone. A larg e enthesophyte is again noted at the superior pole of the patella. Small joint effusion is visible. DATA REPOSITORY: RADIATION DOSE DELIVERED:
== END 2020-12-20 11:35 | disposition home or self-care (01) ==
LOC: DIORS 11:34
PROVIDERS: PCP Nurse Practitioner Family; Visit Provider Student in an Organized Health Care Education/Training Program
DX: Z96.652 Presence of left artificial knee joint (principal)
CPT/HCPCS: 73560

== ENCOUNTER 2021-10-15 15:56 | Outpatient (CLI) | payer OTHER, SELFPAY ==
--- NOTE | 2021-10-15 14:30 | DI.RAD_ITS ---
Exam(s) XR SHOULDER RT COMPLETE 2+V EXAM: XR SHOULDER RT COMPLETE 2+V CLINICAL HISTORY: shoulder pain. TECHNIQUE: 2D digital imaging was performed. COMPARISON: CR RIGHT SHOULDER COMPLETE from 08/03/2014 FINDINGS: Two views of the right shoulder compared to 2014. There is no evidence of fracture or dislocation no abnormal soft tissue calcifications in the subacro mial space nor adjacent to the greater tuberosity. Main finding here is significant degenerative change in the glenohumeral joint with joint space narro wing in the inferior aspect of the joint and opposing osteophytes at the inferior articular surface o f the humeral head and inferior aspect of the osseous glenoid. There are no degenerative subarticula r cysts evident. There are moderate degenerative changes in the ipsilateral AC joint. No evidence of os acromiale. N o ominous osseous lesions. IMPRESSION: Degenerative changes as described above. This appears to have progressed within the glenohumeral mike nt when compared to 2013 DATA REPOSITORY: RADIATION DOSE DELIVERED:
== END 2021-10-15 15:57 | disposition home or self-care (01) ==
LOC: DIORS 15:56
PROVIDERS: PCP Nurse Practitioner Family; Referring Provider Nurse Practitioner Family; Visit Provider Student in an Organized Health Care Education/Training Program
DX: M25.511 Pain in right shoulder (principal); M19.011 Primary osteoarthritis, right shoulder; M19.012 Primary osteoarthritis, left shoulder
CPT/HCPCS: 73030

== ENCOUNTER 2021-10-23 01:25 | Outpatient (CLI) | payer OTHER, SELFPAY ==
--- NOTE | 2021-10-23 07:15 | DI.MRI_ITS ---
Exam(s) MR UPPER JOINT RT WO EXAM: MR UPPER JOINT RT WO CLINICAL HISTORY: Traumatic weakness and pain,s46.011a TECHNIQUE: Multiplanar multisequence MRI of the shoulder was performed. COMPARISON: CR XR SHOULDER RT COMPLETE 2+V from 10/15/2021 FINDINGS: MARROW:No evidence of fracture, Hill-Sachs deformity nor bony Bankart lesion. No ominous osseous les ions. ROTATOR CUFF MECHANISM: AC JOINT/ACROMIUM: There are advanced degenerative changes in the right AC joint. Downgoing osteophy bhargavi, more prominent on the clavicular side of the joint and resulting in some impingement at this lev el.. Also hypertrophied undersurface tissue. Undersurface of the acromion is flat. No impingement hook. There is no evidence of os acromiale. Supraspinatus: There is an area of significant intrasubstance signal abnormality in the supraspinatus foot pad insertion site just above the greater tuberosity which measures 7 millimeters AP by 3 alesia meters wide. This is not completely traversed the tendon and is consistent with an articular side rosa face the partial tear. There is no associated fluid in the subacromial-subdeltoid bursa. No retractio n of the musculotendinous junction. No atrophy. Infraspinatus: Intact. No evidence of tear nor muscle atrophy. Teres Minor: Intact. No evidence of tear nor muscle atrophy. Subscapularis/anterior cuff: There is an area of signal abnormality in the tendon just anterior to th e lesser tuberosity insertion site consistent with partial substance tearing. No retraction. No atrop hy. BICEPS TENDON: Not displaced from the intertubercular groove. Exhibits some substance irregularity wi thin the intertubercular groove but without high-grade tear. LABRUM: No significant signal abnormality in the superior labrum posterior to the biceps tendon inser tion. However, there is tearing of the anterior labrum evident as well as partial tearing of the infe rior labrum. Posterior labrum appears intact. Is no evidence of paralabral cyst. GLENOHUMERAL JOINT: Small-moderate size joint effusion is evident. No degenerative subarticular cysts . Osteophyte on the inferior articular surface of the humeral head noted. No obvious loose intra-casey cular bodies. Inferior glenohumeral ligament appears intact IMPRESSION: 1. There is a partial articular side surface tear at the insertional aspect of the supraspinatus tend on just above the greater tuberosity. Significant impingement evident at the AC joint level. There is no atrophy of supraspinatus. Infraspinatus is intact. 2. There is also partial thickness tearing at the insertional aspect of the subscapularis-anterior cu ff immediately anterior to the lesser tuberosity. There is no abnormal intraosseous signal seen in th e coracoid process. No muscle atrophy. 3. There is tearing of the anterior labrum and part of the inferior labrum evident. There is some par tial tearing of the biceps tendon within the inter tubercular groove but without high-grade tear of t he biceps tendon nor evidence of SLAP-type superior labral tear. Also no evidence of paralabral cyst. 4. Small-moderate size joint effusion which extends down the long head biceps tendon sheath. 5. Moderate degenerative changes in the glenohumeral joint including small osteophyte on the inferior articular surface of the humeral head. There are no degenerative subarticular cysts. No evidence of significant bone edema and no significant lesions. DATA REPOSITORY:
== END 2021-10-23 01:45 ==
PROVIDERS: PCP Nurse Practitioner Family; Visit Provider Student in an Organized Health Care Education/Training Program
DX: M25.511 Pain in right shoulder; S46.011A Strain of muscle(s) and tendon(s) of the rotator cuff of right shoulder, initial encounter; X58.XXXA Exposure to other specified factors, initial encounter; M25.411 Effusion, right shoulder; M19.011 Primary osteoarthritis, right shoulder
CPT/HCPCS: 73221

== ENCOUNTER 2022-04-22 08:16 | Outpatient (CLI) | payer OTHER, SELFPAY ==
--- NOTE | 2022-04-22 08:00 | DI.RAD_ITS ---
Exam(s) XR FOREARM LT EXAM: XR FOREARM LT CLINICAL HISTORY: forearm pain. TECHNIQUE: 2D digital imaging was performed. Two views. COMPARISON: No exams were available for comparison FINDINGS: BONES: No acute fracture is present. No bony destructive lesion is seen. There has been prior resect ion of the trapezium. There is spurring from both epicondyles. There is prominent spurring as well as calcification in distal triceps tendon. No elbow joint effusion. SOFT TISSUE: Normal. IMPRESSION: Degenerative and postsurgical changes. DATA REPOSITORY: RADIATION DOSE DELIVERED:
== END 2022-04-22 08:17 | disposition home or self-care (01) ==
LOC: DIORS 08:16
PROVIDERS: PCP Nurse Practitioner Family; Referring Provider Nurse Practitioner Family; Visit Provider Student in an Organized Health Care Education/Training Program
DX: M19.042 Primary osteoarthritis, left hand (principal)
CPT/HCPCS: 73090

== ENCOUNTER 2022-11-09 16:22 | Outpatient (REF) | payer OTHER, SELFPAY ==
[2022-11-09 15:57] LABS: ALT 33 U/L (16-63); AST 23 U/L (15-37); Albumin 4.1 g/dL (3.4-5.0); Alkaline Phosphatase 53 U/L (46-116); Anion Gap 7.2 mmol/L (3-11); BUN 19 mg/dL (7-18); Bilirubin, Total 0.7 mg/dL (0.2-1.0); CO2 30.8 mmol/L (21.0-32.0); Calcium 9.3 mg/dL (8.5-10.1); Calculated LDL 71 mg/dL (<100); Chloride 104 mmol/L (98-107); Cholesterol 151 mg/dL (<200); Estimated GFR 80.47 (mL/min/1.73m2); Glucose 100 mg/dL (74-106); HDL Cholesterol 57 mg/dL (40-60); Potassium 3.8 mmol/L (3.5-5.1); Sodium 142 mmol/L (136-145); Total Protein 6.9 g/dL (6.4-8.2); Triglyceride 119 mg/dL (<150)
[2022-11-09 16:13] LABS: Hemoglobin A1C 5.6 % (<5.7)
[2022-11-09 23:12] LABS: PSA, Screening 2.4 ng/mL (<=6.5)
== END 2022-11-09 16:23 | disposition home or self-care (01) ==
LOC: NCHCN 16:22
PROVIDERS: PCP Nurse Practitioner Family; Visit Provider Nurse Practitioner Family
DX: R73.03 Prediabetes (principal); E78.5 Hyperlipidemia, unspecified; Z12.5 Encounter for screening for malignant neoplasm of prostate; Z00.00 Encounter for general adult medical examination without abnormal findings
CPT/HCPCS: 80053; 80061; 84153; 83036

== ENCOUNTER 2024-02-07 12:32 | Outpatient (REF) | payer OTHER, SELFPAY ==
[2024-02-07 14:30] LABS: HCT 46.6 % (40.0-50.0); HGB 15.2 g/dL (13.5-17.5); MCH 32.6 pg (27.0-33.0); MCHC 32.6 % (32.0-36.0); MCV 100 fL (80-95); MPV 10.3 fL (8.0-11.0); Platelet Count 172 10^3/uL (130-400); RBC 4.66 10^6/uL (4.36-5.78); RDW 12.6 % (11.8-14.1); RDW-SD 46.4 fL; WBC 5.34 10^3/uL (4.4-10.8)
[2024-02-07 15:02] LABS: ALT 27 U/L (16-63); AST 22 U/L (15-37); Albumin 4.3 g/dL (3.4-5.0); Alkaline Phosphatase 55 U/L (46-116); Anion Gap 7.6 mmol/L (3-11); BUN 20 mg/dL (7-18); Bilirubin, Total 0.7 mg/dL (0.2-1.0); CO2 31.4 mmol/L (21.0-32.0); Calcium 9.4 mg/dL (8.5-10.1); Calculated LDL 102 mg/dL (<100); Chloride 106 mmol/L (98-107); Cholesterol 179 mg/dL (<200); Estimated GFR 79.97 (mL/min/1.73m2); Glucose 103 mg/dL (74-106); HDL Cholesterol 62 mg/dL (40-60); Potassium 4.2 mmol/L (3.5-5.1); Sodium 145 mmol/L (136-145); Total Protein 7.6 g/dL (6.4-8.2); Triglyceride 78 mg/dL (<150)
== END 2024-02-07 12:33 | disposition home or self-care (01) ==
LOC: NCHCN 12:32
PROVIDERS: PCP Nurse Practitioner Family; Visit Provider Nurse Practitioner Family
DX: Z00.00 Encounter for general adult medical examination without abnormal findings (principal); E78.5 Hyperlipidemia, unspecified
CPT/HCPCS: 80053; 80061; 85027

== ENCOUNTER 2024-03-27 15:09 | Outpatient (CLI) | payer OTHER, SELFPAY ==
--- NOTE | 2024-03-27 | DI.RAD_ITS ---
Exam(s) XR KNEE LT 3V AP,LAT,KALYAN EXAM: XR KNEE LT 3V AP,LAT,KALYAN CLINICAL HISTORY: LEFT KNEE PAIN. TECHNIQUE: 2D digital imaging was performed. Three images were obtained. AP, lateral and oblique vi ews were obtained. COMPARISON: CR XR KNEE LT 2V AP,LAT from 12/20/2020 FINDINGS: BONES: There are stable post operative changes of a left total knee replacement present. No fracture or dislocation. Enthesophyte is seen at the superior patella. JOINTS: The orthopedic hardware is in good position. No evidence of hardware loosening. SOFT TISSUE: Vascular calcifications are present. IMPRESSION: Stable left total knee replacement. DATA REPOSITORY: RADIATION DOSE DELIVERED:
== END 2024-03-27 15:10 | disposition home or self-care (01) ==
LOC: DIORS 15:10
PROVIDERS: PCP Nurse Practitioner Family; Referring Provider Nurse Practitioner Family; Visit Provider Student in an Organized Health Care Education/Training Program
DX: Z47.1 Aftercare following joint replacement surgery (principal); Z96.652 Presence of left artificial knee joint
CPT/HCPCS: 73562

== ENCOUNTER 2024-04-10 08:07 | Outpatient (CLI) | payer OTHER, SELFPAY ==
--- NOTE | 2024-04-10 08:00 | RT.EKG_ITS ---
APPROVED REPORT Exam: Resting ECG Reason for Exam: bradycardia Patient Location: O HR:69 bpm ECG Measurements Heart Rate 69 AXIS VT 203 P 70 QRSd 107 QRS -46 QT 418 T 46 QTc 448 Conclusion Sinus arrhythmia...V-rate 58-102, variation>10% Paired ventricular premature complexes...sequence of 2 V complexes LAD, consider left anterior fascicular block...axis(240,-40), S>R II III aVF
== END 2024-04-10 08:08 | disposition home or self-care (01) ==
LOC: DI.CARD 08:08
PROVIDERS: PCP Nurse Practitioner Family; Visit Provider Internal Medicine Cardiovascular Disease
DX: R00.1 Bradycardia, unspecified (principal); Z82.41 Family history of sudden cardiac death; I49.8 Other specified cardiac arrhythmias; I25.10 Atherosclerotic heart disease of native coronary artery without angina pectoris; I44.4 Left anterior fascicular block
CPT/HCPCS: 93010

== ENCOUNTER 2025-03-02 00:33 | Outpatient (CLI) | payer OTHER, SELFPAY ==
--- NOTE | 2025-03-02 11:09 | DI.RAD_ITS ---
Exam(s) XR SHOULDER LT COMPLETE 2+V EXAM: XR SHOULDER LT COMPLETE 2+V CLINICAL HISTORY: INJURY,S49.92XA,FELL ON SHOULDER. TECHNIQUE: 2D digital imaging was performed. COMPARISON: CR XR SHOULDER RT COMPLETE 2+V from 10/15/2021 FINDINGS: Six views No evidence of fracture or dislocation or abnormal soft tissue calcifications. The subacromial space is not diminished. There are no obvious degenerative changes in the glenohumeral joint. Mild degen erative changes noted in the AC joint. Bone density normal. No osseous lesions. IMPRESSION: No acute osseous findings.. DATA REPOSITORY: RADIATION DOSE DELIVERED:
== END 2025-03-02 00:53 ==
LOC: DI 00:34
PROVIDERS: PCP Nurse Practitioner Family; Visit Provider Nurse Practitioner Family
DX: S49.92XA Unspecified injury of left shoulder and upper arm, initial encounter (principal); X58.XXXA Exposure to other specified factors, initial encounter
CPT/HCPCS: 73030

== ENCOUNTER 2025-03-16 11:35 | Outpatient (REF) | payer OTHER, SELFPAY ==
[2025-03-16 15:06] LABS: HCT 44.6 % (40.0-50.0); HGB 15.1 g/dL (13.5-17.5); MCHC 33.9 % (32.0-36.0); MCV 98 fL (80-95); Platelet Count 185 10^3/uL (130-400); RBC 4.57 10^6/uL (4.36-5.78); RDW-SD 45.8 fL; WBC 4.98 10^3/uL (4.4-10.8)
[2025-03-16 15:31] LABS: Hemoglobin A1C 5.8 % (<5.7)
[2025-03-16 15:47] LABS: ALT 39 U/L (16-63); AST 31 U/L (15-37); Albumin 4.1 g/dL (3.4-5.0); Alkaline Phosphatase 52 U/L (46-116); Anion Gap 7.8 mmol/L (3-11); BUN 22 mg/dL (7-18); Bilirubin, Total 0.7 mg/dL (0.2-1.0); CO2 28.2 mmol/L (21.0-32.0); Calcium 9.5 mg/dL (8.5-10.1); Calculated LDL 77 mg/dL (<100); Chloride 105 mmol/L (98-107); Cholesterol 149 mg/dL (<200); Estimated GFR 78.98 (mL/min/1.73m2); Glucose 106 mg/dL (74-106); HDL Cholesterol 61 mg/dL (>or=40); Potassium 4.4 mmol/L (3.5-5.1); Sodium 141 mmol/L (136-145); Total Protein 7.3 g/dL (6.4-8.2); Triglyceride 56 mg/dL (<150)
== END 2025-03-16 11:36 | disposition home or self-care (01) ==
LOC: NCHCN 11:35
PROVIDERS: PCP Nurse Practitioner Family; Visit Provider Nurse Practitioner Family
DX: Z00.00 Encounter for general adult medical examination without abnormal findings (principal); R73.03 Prediabetes
CPT/HCPCS: 80053; 80061; 85027; 83036

== ENCOUNTER 2025-04-27 09:44 | Day surgery (SDC) | payer OTHER, SELFPAY ==
--- NOTE | 2025-04-26 16:22 | W.PREOPHP ---
Assessment and Plan Assessment and plan (1) Encounter for screening colonoscopy: Status: Acute Assessment and plan: We reviewed the plan for another screening colonoscopy. And really had the chance to ask any other questions today. We can proceed with colonoscopy as scheduled. History of Present Illness History of Present Illness Chief Complaint: Screening colonoscopy Narrative: Aaron is 75 years old, and he is here for his next screening colonoscopy. His last one was in 2019, and that was negative. In the interim, he has been in his usual state of health. He denies any melena or unintentional weight loss. He does have some intermittent hematochezia that seems most consistent with hemorrhoids. His family history includes a father who was diagnosed with colon cancer. [facility] All Active Problems Encounter for screening colonoscopy (Acute) Family history of sudden cardiac (Acute) Prediabetes (Acute) Nicotine abuse (Acute) Hyperlipemia (Acute) Erectile dysfunction (Acute) Nicotine dependence (Acute) Bradycardia (Acute) Left sided sciatica (Acute) Radiculopathy (Acute) Self-injurious behavior (Acute) hx heavy alcohol abuse Sensorineural hearing loss (Acute) Irritability and anger (Acute) PTSD Tendonitis of long head of biceps brachii of right shoulder (Acute) Traumatic tear of right rotator cuff (Acute ~09/2021) History of colonoscopy (Chronic) 03/08/20 Dr. [place], diverticulitis, no polyps, repeat 5 years due to family hx Diverticulosis (Acute) Family history of colon cancer in father (Acute) At age 64 Adenomatous polyp of transverse colon (Acute ~04/18/15) Rupture of right triceps tendon (Acute ~06/14/19) S/P triceps repair DOS: 08/03/19 Medical History Concussion with no loss of consciousness Basal cell carcinoma, face 2013 Atopic dermatitis Basal cell carcinoma face History of concussion Pt. stated he fell and hit his head on ice 05/30/09 History of syncope GERD (gastroesophageal reflux disease) Surgical History Status post right knee replacement (2010) 2010 in [facility] [place] Status post total left knee replacement (12/12/19) H/O right knee surgery 8/27/09 History of appendectomy History of colonoscopy Family History Mother , 69 heart failure Congestive heart failure Father , 77 colon cancer Colon cancer Sister Pacemaker Cardiac defibrillator in place Sister Pacemaker Cardiac defibrillator in place Sister Alive and well Sister Alive and well Son Alive and well Son Alive and well Social History Smoking/Tobacco Use Status: Former Tobacco Use Quit Date: 10/04/90 Pack-years: 30 Smoking risk assessment performed?: Yes Alcohol Intake: current Alcohol Intake frequency: a few times a week Alcohol type: beer and hard liquor Drug use: Never Substance use type: does not use current occupation: retired - Current gender identity: male Do you feel safe at home: Yes Do you feel safe in your relationship?: Yes Meds Allergies and Home Medications Allergies Allergy/AdvReac Type Severity Reaction Status Date / Time No Known Drug Allergies Allergy Other (See Verified 04/27/25 10:06 Comment) Home Medications ?Medication ?Instructions ?Recorded ?Confirmed ?Type multivitamin 1 cap PO DAILY 08/01/19 04/26/25 History omega 5-bsm-hrj-fish oil 1,000 mg 1 cap PO DAILY 08/01/19 04/26/25 History (120 mg-180 mg) capsule (Fish Oil) acetaminophen 500 mg tablet 1,000 mg (2 x 500 mg) PO Q8H PRN 12/13/19 04/27/25 Rx pain #90 tabs rosuvastatin 20 mg tablet 20 mg PO DAILY 02/16/24 04/26/25 History bisacodyl 5 mg tablet,delayed 5 mg PO ONCE colonscopy bowel prep 03/01/25 04/27/25 Rx release (Dulcolax (bisacodyl)) #4 tabs polyethylene glycol 3350 17 238 g PO ONCE colonoscopy prep 03/01/25 04/27/25 Rx gram/dose oral powder #238 grams aspirin 81 mg tablet 81 mg PO DAILY 04/09/25 04/26/25 History Exam Const General: cooperative, healthy appearing and not in acute distress Neck Neck: normal visual inspection, no lymphadenopathy and supple Thyroid: thyroid normal Resp Effort & Inspection: normal respiratory effort Auscultation: clear to auscultation bilaterally Cardio Jugular venous pressure: no JVD Rate: regular rate Rhythm: regular rhythm Heart Sounds: S1 normal and S2 normal GI Inspection: normal to inspection Palpation: soft, no guarding, no hernias and nontender Percussion: normal to percussion Auscultation: normal bowel sounds Neuro General: patient alert, patient awake and patient oriented x3 Psych Appearance: grossly normal
--- NOTE | 2025-04-26 16:23 | W.PM.DSUDISC ---
Date of service: 04/27/25 Discharge Plan Disposition Patient Disposition: Home Condition: Good Discharge Details Reason For Visit: Screening colonoscopy Attending Provider: Kj Hawk Primary Care Provider: Roberta Porter Home Meds and New Rx's Prescriptions: Continued polyethylene glycol 3350 17 gram/dose powder 238 g PO ONCE Qty: 238 0RF Rx Instructions: take per colonoscopy instructions bisacodyl [Dulcolax (bisacodyl)] 5 mg tablet,delayed release (DR/EC) 5 mg PO ONCE Qty: 4 0RF Rx Instructions: take per colonoscopy instructions rosuvastatin 20 mg tablet 20 mg PO DAILY aspirin 81 mg tablet 81 mg PO DAILY multivitamin Capsule 1 cap PO DAILY omega 4-ixd-cfz-fish oil [Fish Oil] 1,000 mg (120 mg-180 mg) Capsule 1 cap PO DAILY acetaminophen 500 mg tablet 1,000 mg PO Q8H PRN (Reason: pain) Qty: 90 3RF Discontinued polyethylene glycol 3350 17 gram/dose powder 238 g PO ONCE Qty: 238 0RF Rx Instructions: take per colonoscopy instructions bisacodyl [Dulcolax (bisacodyl)] 5 mg tablet,delayed release (DR/EC) 5 mg PO ONCE Qty: 4 0RF Rx Instructions: take per colonoscopy instructions Discharge Instructions Instructions: Colon polyps, Diverticulosis Additional Instructions: Sarah, is great seeing you again today. Hope you feel well after the procedure. Things went very smoothly. I did find, I removed 2 polyps today. These will be sent off for testing. To the naked eye, they do not appear to be anything at all to worry about. Incidentally, you also have quite a bit of diverticulosis. So much in fact, that I would consider this at a relative contraindication to future colonoscopies, as the risk of complications from the procedure does tend to go up with the presence of diverticulosis to some degree. Given your age, and the diverticular disease, I think it is very reasonable that this would be your last colonoscopy. Certainly, if anything changes or you have any concerns or worries, we can give consideration to another procedure. If you need anything, or have any questions at all, please do not hesitate to ask at any time. 1. If tolerated, consume a soft, low fiber diet for 1-2 days. 2. Do not drive, drink alcohol, operate machinery, make critical decisions, or do activities that require coordination or balance for 24 hours. 3. Because air was put into your colon during the procedure, expelling air from your rectum (passing gas or farting) is normal. 4. You may not have a bowel movement for 1-3 days because of the colonoscopy prep. This is normal. 5. Go directly to the emergency room if you notice any of the following: Develop chills (warm to touch), or if you have a thermometer and your temperature is above 101 Difficulty breathing or difficultly swallowing Persistent vomiting Severe abdominal pain, other than gas cramps Severe chest pain Black, tarry stools Any bleeding ? exceeding one tablespoon 6. Call your physician if the site where your intravenous was started becomes red, swollen, painful, and warm to touch. 7. Your physician has reviewed your pre-procedure medications. Please continue to take those medications as previously ordered. You will be given specific information/education regarding any changes to your medications before leaving. Activity:: Activity as Tolerated Diet:: As Tolerated Discharge Orders Discharge Orders: Discharge Order (Routine); Ordered 04/26/25 Ordered By: Kj Hawk DS: Diagnosis Discharge Diagnosis (1) Encounter for screening colonoscopy: Status: Acute Asessment and Plan: Follow-up on polypectomy results
--- NOTE | 2025-04-26 16:24 | COLE_ITS ---
Date of service: 04/27/25 Time of Service: 12:18 Colonoscopy Report Date of procedure: 04/27/25 Pre-op diagnosis general: Screening colonoscopy Post-op diagnosis procedure note: other (Diverticulosis, colorectal polyps) Procedure: Colonoscopy with polypectomy Surgeon: Kj Hawk Anesthesia Type: General:No Airway Estimated blood loss (mL): 5 Pathology: other (0.25 cm rectal polyp, 0.25 cm ascending colon polyp) Complications: None Disposition: same day Indications: Aaron is a 75-year-old male who needs his next screening colonoscopy Prep: Miralax/Dulcolax Procedure Start Time: 11:15 Procedure End Time: 11:45 Retraction Time: 8 Findings: 0.25 cm rectal polyp, 0.25 cm ascending colon polyp extensive pandiverticulosis Procedure Description: After the induction of anesthesia, and with the patient in left lateral decubitu s position, I began by performing an external anorectal exam.? Perineum and skin were normal, as was the anal verge.? There was no evidence of external hemorrhoids.? Next, I performed a digital rectal exam.? I did not appreciate any abnormal findings.? Next, I advanced a colonoscope into the rectal vault.? I performed retroflexion.? This appeared normal. In the midportion of the rectal vault was a 0.25 cm flat polyp. This was removed with cold forceps with minimal bleeding.? Using irrigation, I then advanced the colonoscope beyond the rectal folds and into the sigmoid colon before advancing towards the cecum.? There is extensive pandiverticulosis. This most heavily concentrated in the sigmoid with cavernous diverticula, but it does affect all other segments as well. Great care was taken to maintain the true lumen of the colon..? The scope was noted to be in the cecum by identification of the ileocecal valve and appendiceal orifice.? I then began withdrawing the colonoscope using repeated irrigation as necessary for full evaluation of the colonic mucosa. Within the ascending colon was a 0.25 cm flat polyp. This was also removed with cold forceps similar to the rectal polyp. Resection was complete and there was minimal bleeding. ?Once the scope was withdrawn to the level of the rectum, great care was taken to examine portions of the rectal folds.? Finally, the scope was withdrawn and the patient was brought to the same-day surgery recovery unit as the anesthetic wore off. ?The findings and instructions were shared with the patient prior to discharge. Reddell Bowel Prep Reddell Bowel Prep Right Colon: 3 Left Colon: 2 Transverse Colon: 3 Total Score: 8
[2025-04-27 10:03] VITALS: BP 120/83; PULSE 59; RESP 16; TEMP 36.6; O2SAT 95
[2025-04-27] MEDS: Lactated Ringers 1,000 ML 80 ML IV (10:13)
--- NOTE | 2025-04-27 10:32 | ANES.PREOP_ITS ---
General Info Date of Service Date Performed: 04/27/25 Height: 5 ft 9 in Weight: 80.1 kg Body Mass Index (BMI): 26.0 Surgical Procedure: Operation Date: 04/27/25 11:20 Proposed Procedure Side Surgeon p Colonoscopy Kj Hawk MD Meds Allergies and Home Medications Allergies Allergy/AdvReac Type Severity Reaction Status Date / Time No Known Drug Allergies Allergy Other (See Verified 04/27/25 10:06 Comment) Home Medication ?Medication ?Instructions ?Recorded multivitamin 1 cap PO DAILY 08/01/19 omega 6-erv-wto-fish oil 1,000 mg 1 cap PO DAILY 08/01 (120 mg-180 mg) capsule (Fish Oil) acetaminophen 500 mg tablet 1,000 mg (2 x 500 mg) PO Q 8H PRN 12/13/19 pain #90 tabs rosuvastatin 20 mg tablet 20 mg PO DAILY 02/16/24 bisacodyl 5 mg tablet,delayed 5 mg PO ONCE colonscopy bowel prep 03/01/25 release (Dulcolax (bisacodyl)) #4 tabs polyethylene glycol 3350 17 238 g PO ONCE colonoscopy prep 03/01/25 gram/dose oral powder #238 grams aspirin 81 mg tablet 81 mg PO DAILY 04/09/25 Current Visit Medications: Current Medications Generic Name Dose Route Start Last Admin Trade Name Freq PRN Reason Stop Dose Admin Ringer's Solution 1,000 mls @ 80 mls/hr 04/27/25 06:00 04/27/25 10:13 IV 04/27/25 23:59 80 mls/hr INFUSION SAM Administration IV Miscellaneous Supplies 1 each 04/27/25 06:00 Iv Access IV 04/27/25 23:59 DIRECTED SAM Ondansetron HCl 4 mg 04/26/25 16:28 Ondansetron 4 Mg/2 Ml Vial IVP 05/26/25 16:27 Q4H PRN PRN Nausea / Vomiting Sodium Chloride 0 ml 04/27/25 06:00 Normal Saline Flush 10 Ml Syr IV 04/27/25 23:59 PRN PRN Sodium Chloride 0 ml 04/27/25 06:00 Normal Saline 10 Ml Vial IJ 04/27/25 23:59 DIRECTED PRN Sterile Water 0 ml 04/27/25 06:00 Water,Injection,Sterile 10 Ml Vial IJ 04/27/25 23:59 DIRECTED PRN PFSH Active Problems Active Problems: Problem Status Onset Code Encounter for screening colonoscopy Acute Z12.11 Family history of sudden cardiac Acute Z82.41 Prediabetes Acute R73.03 Nicotine abuse Acute Z72.0 Hyperlipemia Acute E78.5 Erectile dysfunction Acute N52.9 Nicotine dependence Acute F17.200 Bradycardia Acute R00.1 Left sided sciatica Acute M54.32 Radiculopathy Acute M54.10 Self-injurious behavior Acute Z72.89 Sensorineural hearing loss Acute H90.5 Irritability and anger Acute R45.4 Tendonitis of long head of biceps brachii of right shoulder Acute M75.21 Traumatic tear of right rotator cuff Acute ~09/2021 S46.011A History of colonoscopy Chronic Z98.890 Diverticulosis Acute K57.90 Family history of colon cancer in father Acute Z80.0 Adenomatous polyp of transverse colon Acute ~04/18/15 D12.3 Rupture of right triceps tendon Acute ~06/14/19 S46.311A Medical History Medical History Concussion with no loss of consciousness Basal cell carcinoma, face 2013 Atopic dermatitis Basal cell carcinoma face History of concussion Pt. stated he fell and hit his head on ice 05/30/09 History of syncope GERD (gastroesophageal reflux disease) Surgical History Surgical History Status post right knee replacement (2010) 2010 in [facility] [place] Status post total left knee replacement (12/12/19) H/O right knee surgery 05/30/09 History of appendectomy History of colonoscopy Tobacco Smoking/Tobacco Use Status: Former Tobacco Use Alcohol Alcohol Intake: current Alcohol intake frequency: a few times a week Alcohol type: beer and hard liquor Substance Use Substance use: Never Substance use type: does not use Vital Signs and Lab Results Vital Signs Most Recent Vital Signs in EMR: Most Recent Vital Signs Temp Pulse Resp BP Pulse Ox 36.6 C 59 L 16 120/83 95 04/27/25 10:03 04/27/25 10:03 04/27/25 10:03 04/27/25 10:03 04/27/25 10:03 Imaging and Studies Imaging and Studies Study information below may be from another EMR and interpreted by another provider. Please see original notes in EMR for more complete details. EKG Summary: Reviewed Stress Test Summary: Reviewed Carotid Artery Summary:: Reviewed Anesthesia Assessment and Plan Anesthesia History Personal History: No History of Anesthesia Complications Family History: No Family History of Anesthesia Complications Exercise Tolerance Exercise Tolerance: Metabolic Equivalents>4 Pertinent Negatives Pertinent Negatives: No Symptoms of GERD, No Major Cardiovascular Symptoms or Complaints, No Major Pulmonary Symptoms or Complaints and No History of CVA/TIA Cardiac & Pulmonary Exam Cardiac Exam: Normal S1/S2 Heart Sounds Pulmonary Exam: Clear Bilateral Breath Sounds Implantable Cardiac Device Does patient have a Pacemaker or an ICD?: No Airway Exam Known Difficult Airway: No Mallampati Class: 2 Mouth Opening: Normal (> 3cm) Thyromental Distance: Greater than 3 cm Neck Range of Motion: Full ROM Neck Circumference: Normal Teeth Condition: Generalized Poor Dentition, Loose or Chipped and Removable Dentures/Plates Upper ASA Classification ASA Score: ASA 2 Emergency Case?: No NPO Status NPO Status: NPO Clears >2 hours, Solids >8 hours Anesthesia Plan Resuscitation Status: Full Code Anesthesia Technique: General Anesthesia Airway Planned: Natural Airway Monitors Used: Standard Monitors
[2025-04-27 10:37] VITALS: BMI 26.0
--- NOTE | 2025-04-27 11:15 | BOWEL_PTH ---
PATIENT: Aaron Moya LOC: [facility] U#:[id number] AGE/SX: 75/M ROOM: RE04/27/[address]: Kj Hawk MD : [id number] BED: DIS: 04/27/2025 SPEC #: [id number] RECD: 04/27/25 12:29 STATUS: KATE REQ #: [id number] NANCY: 04/27/25 11:[address]: Kj Hawk DEPT: Surgical Specimen RECD BY: Kaycee Guerra ENTERED: 04/27/25 12:31 SP TYPE: Bowel OTHR DR: Roberta Porter Tissues: 1 - BIOPSY BOWEL 2 - BIOPSY BOWEL Procedures: GROSS AND MICRO LEVEL 4 Comments: [id number]
[2025-04-27 11:50] VITALS: BP 117/84; PULSE 58; RESP 14; TEMP 36; O2SAT 97
--- NOTE | 2025-04-27 11:57 | W.ANESPOSTOP ---
Postoperative Evaluation Date, Time and Location Date Performed: 04/27/25 Time Performed: 11:57 Patient Location: Day Surgery Unit Vital Signs Most Recent Imported Vital Signs: Most Recent Vital Signs Temp Pulse Resp BP Pulse Ox 36.0 C L 58 L 14 117/84 97 04/27/25 11:50 04/27/25 11:50 04/27/25 11:50 04/27/25 11:50 04/27/25 11:50 Pain Score Most Recent Pain Score: Most Recent Pain Score Pain Level 0 04/27/25 11:50 Assessment Mental Status: Arousable with meaningful communication Airway and Respiratory Function: Patent airway with normal (patient baseline) respiratory exam Cardiovascular Function: Hemodynamically Stable Hydration Status: Adequately Hydrated Nausea & Vomiting: No Nausea or Vomiting Pain: Pt. Denies Any Pain Peripheral Nerve Block: Patient did not receive a nerve block
[2025-04-27 12:26] VITALS: BP 133/73; PULSE 71; RESP 14; TEMP 36.1; O2SAT 97
--- NOTE | 2025-04-27 12:49 | W.ANESPOSTOP ---
Postoperative Evaluation Date, Time and Location Date Performed: 04/27/25 Time Performed: 12:49 Patient Location: Day Surgery Unit Vital Signs Most Recent Imported Vital Signs: Most Recent Vital Signs Temp Pulse Resp BP Pulse Ox 36.1 C L 71 14 133/73 97 04/27/25 12:26 04/27/25 12:26 04/27/25 12:26 04/27/25 12:26 04/27/25 12:26 Most Recent Vital Signs Temp Pulse Resp BP Pulse Ox 36.0 C L 58 L 14 117/84 97 04/27/25 11:50 04/27/25 11:50 04/27/25 11:50 04/27/25 11:50 04/27/25 11:50 Pain Score Most Recent Pain Score: Most Recent Pain Score Pain Level 1 04/27/25 12:26 Assessment Mental Status: Awake (Alert & Oriented to Patient Baseline) Airway and Respiratory Function: Patent airway with normal (patient baseline) respiratory exam Cardiovascular Function: Hemodynamically Stable Hydration Status: Adequately Hydrated Nausea & Vomiting: No Nausea or Vomiting Pain: Pt. Denies Any Pain Peripheral Nerve Block: Patient did not receive a nerve block
== END 2025-04-27 12:50 | disposition home or self-care (01) ==
LOC: SUR 09:45
PROVIDERS: PCP Nurse Practitioner Family; Visit Provider Surgery
PROC: 0DJD8ZZ Inspection of Lower Intestinal Tract, Via Natural or Artificial Opening Endoscopic (ICD-10-PCS; CPT 45378; principal; 2025-04-27 11:15)
DX: Z12.11 Encounter for screening for malignant neoplasm of colon (principal); D12.2 Benign neoplasm of ascending colon; D12.8 Benign neoplasm of rectum; K57.30 Diverticulosis of large intestine without perforation or abscess without bleeding
CPT/HCPCS: 45380; 88305; J2003; J2371; J2704

== ENCOUNTER 2025-06-27 03:36 | Outpatient (CLI) | payer OTHER, SELFPAY ==
--- NOTE | 2025-06-27 06:15 | DI.MRI_ITS ---
Exam(s) MR UPPER JOINT LT WO EXAM: MR UPPER JOINT LT WO CLINICAL HISTORY: L SHOULDER PAIN,lt rotator cuff tear,m75.102. TECHNIQUE: Multiplanar multisequence MRI was performed. COMPARISON: Plain films 02 Mar 2025 FINDINGS: BONES: There is no fracture or contusion pattern. JOINTS:The acromioclavicular joint shows mild spurring. This fluid within the AC joint. The glenohumeral joint is normal. TENDONS: Supraspinatus: There is a full-thickness tear of the supraspinatus tendon. There is retraction nearly to the tip of the acromion. Infraspinatus: There is a small amount of fluid extending along the infraspinatus tendon but no visible focal tear. Subscapularis: Unremarkable. Teres Minor: Unremarkable. Biceps and Acosta: Unremarkable. MUSCLES: Unremarkable. GLENOID LABRUM: Unremarkable on this noncontrast examination. SOFT TISSUES: Unremarkable. BURSAE: Subacromial and subdeltoid bursae shows a small amount of fluid.. IMPRESSION: Full-thickness tear with retraction of the supraspinatus tendon. Small amount of fluid extending along the infraspinatus tendon without visible tear. Mild degenerate changes and fluid within the AC joint. DATA REPOSITORY:
== END 2025-06-27 03:56 ==
LOC: DI 03:36
PROVIDERS: PCP Nurse Practitioner Family; Visit Provider Student in an Organized Health Care Education/Training Program
DX: M75.122 Complete rotator cuff tear or rupture of left shoulder, not specified as traumatic (principal)
CPT/HCPCS: 73221